=== PATIENT | female | born 1970 | race Caucasian/White ===

== ENCOUNTER 2017-02-24 16:50 | Emergency (ER) | payer OTHER ==
--- NOTE | 2017-02-24 17:47 | ED ---
General Adult HPI - General Source: patient, RN notes reviewed Mode of arrival: ambulatory Limitations: no limitations <Tyrone Awan - Last Filed: 02/24/17 19:10> <Satish Snyder - Last Filed: 02/24/17 20:54> - General Chief complaint: Neuro Symptoms/Deficit Stated complaint: Slurred Speech-3 wks Time Seen by Provider: 02/24/17 17:05 - History of Present Illness Initial comments: this is a 46-year-old female presents emergency Department complaining that she' s had slurred speech for 3 weeks. Patient states it doesn't appear to be getting any worse. She has had for 3 weeks her has noticed and her coworkers noticed. Patient states she's had no headache she denies any numbness or weakness. Patient denies any facial droop. Patient denies any blurred vision. Patient states she's had no chest pain difficulty breathing or shortness of breath. Patient denies any palpitations. Patient denies abdominal pain patient denies nausea vomiting or diarrhea. Patient denies any recent fever chills or cough. (Tyrone Awan) - Related Data Home Medications Medication Instructions Recorded Confirmed EPINEPHrine [Epipen 2-Hussain] 0.3 mg IM ONCE PRN 02/24/17 02/24/17 Bolton-3 Fatty Acids/Fish Oil [Fish 1 cap PO BID 02/24/17 02/24/17 Oil 1,000 mg Capsule] Omeprazole Magnesium [Prilosec Otc] 20 mg PO HS 02/24/17 02/24/17 Polyethylene Glycol 3350 [Miralax] 17 gm PO DAILY PRN 02/24/17 02/24/17 Allergies Allergy/AdvReac Type Severity Reaction Status Date / Time peanut Allergy Per Verified 02/24/17 17:57 Allergy Testing Penicillins Allergy Rash/Hives Verified 02/24/17 17:57 Review of Systems ROS Other: All systems not noted in ROS Statement are negative. <Tyrone Awan - Last Filed: 02/24/17 19:10> ROS Other: All systems not noted in ROS Statement are negative. <Satish Snyder - Last Filed: 02/24/17 20:54> ROS Statement: Those systems with pertinent positive or pertinent negative responses have been documented in the HPI. Past Medical History History of Any Multi-Drug Resistant Organisms: None Reported Past Surgical History: Hysterectomy, Tubal Ligation Additional Past Surgical History / Comment(s): dental surgery Smoking Status: Never smoker Past Alcohol Use History: Rare Past Drug Use History: None Reported <Tyrone Awan - Last Filed: 02/24/17 19:10> General Exam Limitations: no limitations <Tyrone Awan - Last Filed: 02/24/17 19:10> <Satish Snyder - Last Filed: 02/24/17 20:54> - General Exam Comments Initial Comments: GENERAL: Patient is well-developed and well-nourished. Patient is nontoxic and well- hydrated and is in no acute distress. ENT: Neck is soft and supple. No significant lymphadenopathy is noted. Oropharynx is clear. Moist mucous membranes. Neck has full range of motion without eliciting any pain. EYES: The sclera were anicteric and conjunctiva were pink and moist. Extraocular movements were intact and pupils were equal round and reactive to light. Eyelids were unremarkable. PULMONARY: Unlabored respirations. Good breath sounds bilaterally. No audible rales rhonchi or wheezing was noted. CARDIOVASCULAR: There is a regular rate and rhythm without any murmurs gallops or rubs. ABDOMEN: Soft and nontender with normal bowel sounds. No palpable organomegaly was noted. There is no palpable pulsatile mass. SKIN: Skin is clear with no lesions or rashes and otherwise unremarkable. NEUROLOGIC: Patient is alert and oriented x3. Cranial nerves II through XII are grossly intact. Motor and sensory are also intact. speech is very slightly slurred. Symmetrical smile. MUSCULOSKELETAL: Normal extremities with adequate strength and full range of motion. No lower extremity swelling or edema. No calf tenderness. LYMPHATICS: No significant lymphadenopathy is noted PSYCHIATRIC: Normal psychiatric evaluation. Normal interpersonal interactions appears functionally intact in deals appropriately with others. No signs of depression. No signs of anxiety. (Tyrone Awan) Medical Decision Making <Tyrone Awan - Last Filed: 02/24/17 19:10> - Lab Data Result diagrams: 02/24/17 19:10 02/24/17 19:10 <Satish Snyder - Last Filed: 02/24/17 20:54> - Medical Decision Making EKG shows normal sinus rhythm at 75 bpm AK interval is 140 QRS is 98 QT interval is 4:30 QTC is 480. Patient's EKG shows no ST segment elevation or depression or T-wave abdomen is noted. Dr. Reynolds will be taking over the care of this patient at 7 PM (Tyrone Awan) I received this patient as a sign out, to review the studies with the patient. I have reviewed the results with the patient and her . She has not had any new symptoms and is feeling the same as when she arrived. We discussed further evaluation, including having neurology consultation and possibly MRI. Of they were able to recall some additional history, namely that just prior to onset of symptoms the patient had dental cleaning that required she received some anesthesia, and they will follow-up with the neurologist see if this is a possible sequela of that. Discussed appropriate follow-up care and return parameters. (Satish Snyder) - Lab Data Lab Results 02/24/17 02/24/17 02/24/17 Range/Units 19:10 19:10 19:10 WBC 9.7 (3.8-10.6) k/uL RBC 4.96 (3.80-5.40) m/uL Hgb 14.0 (11.4-16.0) gm/dL Hct 42.1 (34.0-46.0) % MCV 85.0 (80.0-100.0) fL MCH 28.3 (25.0-35.0) pg MCHC 33.3 (31.0-37.0) g/dL RDW 13.6 (11.5-15.5) % Plt Count 274 (150-450) k/uL Neutrophils % 67 % Lymphocytes % 25 % Monocytes % 4 % Eosinophils % 2 % Basophils % 1 % Neutrophils # 6.5 (1.3-7.7) k/uL Lymphocytes # 2.4 (1.0-4.8) k/uL Monocytes # 0.4 (0-1.0) k/uL Eosinophils # 0.2 (0-0.7) k/uL Basophils # 0.1 (0-0.2) k/uL PT (9.0-12.0) sec INR (<1.1) APTT (22.0-30.0) sec Sodium 141 (137-145) mmol/L Potassium 4.0 (3.5-5.1) mmol/L Chloride 107 (98-107) mmol/L Carbon Dioxide 22 (22-30) mmol/L Anion Gap 12 mmol/L BUN 13 (7-17) mg/dL Creatinine 0.60 (0.52-1.04) mg/dL Est GFR (MDRD) Af Amer >60 (>60 ml/min/1.73 sqM) Est GFR (MDRD) Non-Af >60 (>60 ml/min/1.73 sqM) Glucose 93 (74-99) mg/dL Calcium 9.4 (8.4-10.2) mg/dL Total Bilirubin 0.4 (0.2-1.3) mg/dL AST 28 (14-36) U/L ALT 38 (9-52) U/L Alkaline Phosphatase 108 (38-126) U/L Total Creatine Kinase 87 (30-135) U/L CK-MB (CK-2) 0.7 (0.0-2.4) ng/mL CK-MB (CK-2) Rel Index 0.8 Troponin I <0.012 (0.000-0.034) ng/mL Total Protein 7.1 (6.3-8.2) g/dL Albumin 4.2 (3.5-5.0) g/dL 02/24/17 Range/Units 19:10 WBC (3.8-10.6) k/uL RBC (3.80-5.40) m/uL Hgb (11.4-16.0) gm/dL Hct (34.0-46.0) % MCV (80.0-100.0) fL MCH (25.0-35.0) pg MCHC (31.0-37.0) g/dL RDW (11.5-15.5) % Plt Count (150-450) k/uL Neutrophils % % Lymphocytes % % Monocytes % % Eosinophils % % Basophils % % Neutrophils # (1.3-7.7) k/uL Lymphocytes # (1.0-4.8) k/uL Monocytes # (0-1.0) k/uL Eosinophils # (0-0.7) k/uL Basophils # (0-0.2) k/uL PT 10.1 (9.0-12.0) sec INR 1.0 (<1.1) APTT 24.7 (22.0-30.0) sec Sodium (137-145) mmol/L Potassium (3.5-5.1) mmol/L Chloride (98-107) mmol/L Carbon Dioxide (22-30) mmol/L Anion Gap mmol/L BUN (7-17) mg/dL Creatinine (0.52-1.04) mg/dL Est GFR (MDRD) Af Amer (>60 ml/min/1.73 sqM) Est GFR (MDRD) Non-Af (>60 ml/min/1.73 sqM) Glucose (74-99) mg/dL Calcium (8.4-10.2) mg/dL Total Bilirubin (0.2-1.3) mg/dL AST (14-36) U/L ALT (9-52) U/L Alkaline Phosphatase (38-126) U/L Total Creatine Kinase (30-135) U/L CK-MB (CK-2) (0.0-2.4) ng/mL CK-MB (CK-2) Rel Index Troponin I (0.000-0.034) ng/mL Total Protein (6.3-8.2) g/dL Albumin (3.5-5.0) g/dL Disposition <Tyrone Awan - Last Filed: 02/24/17 19:10> <Satish Snyder - Last Filed: 02/24/17 20:54> Clinical Impression: Dysarthria Disposition: HOME SELF-CARE Condition: Fair Referrals: Tyrone Caruso MD [Primary Care Provider] - 1-2 days Rin Calixto MD [STAFF PHYSICIAN] - 1-2 days
--- NOTE | 2017-02-24 18:23 | CT ---
EXAMINATION TYPE: CT brain wo con for TPA DATE OF EXAM: 02/24/2017 COMPARISON: NONE INDICATION: Slurred speech x 6-8 weeks. DLP: 1121.00 mGycm, Automated exposure control for dose reduction was used. CONTRAST: None CT of the brain is performed utilizing 3 mm thick sections through the posterior fossa and 3 mm thick sections through the remaining calvarium. Study is performed within 24 hours of arrival to the hosp ital. No abnormal hyperdensity is present to suggest an acute intracranial hemorrhage. No mass lesion is evident. No acute infarcts are evident. Ventricles and sulci are appropriate for the patient age. Paranasal sinuses and mastoid air cells within the [id number] are clear. IMPRESSIONS: 1. Normal CT Brain 2. Report was called to the emergency room by Dr. Ortiz by telephone at 1820 hours 02/24/2017
--- NOTE | 2017-02-24 18:57 | XR ---
EXAMINATION TYPE: XR chest 2V DATE OF EXAM: 02/24/2017 COMPARISON: NONE INDICATION: Altered mental status slurred speech TECHNIQUE: Frontal and lateral views of the chest are obtained. FINDINGS: The heart size is normal. The pulmonary vasculature is normal. The lungs are clear. IMPRESSION: 1. No acute pulmonary process.
[2017-02-24 19:26] LABS: Basophils # (A) 0.1 k/uL (0-0.2); Basophils % (A) 1 %; CH 28.2; CHCM 33.3; Eosinophils # (A) 0.2 k/uL (0-0.7); Eosinophils % (A) 2 %; HCT 42.1 % (34.0-46.0); HDW 2.55; Luc # (Auto) 0.11; Luc % (Auto) 1; Lymphocytes # (A) 2.4 k/uL (1.0-4.8); Lymphocytes % (A) 25 %; MCH 28.3 pg (25.0-35.0); MCHC 33.3 g/dL (31.0-37.0); Mean Platelet Volume 6.5; Monocytes # (A) 0.4 k/uL (0-1.0); Monocytes % (A) 4 %; Neutrophils # (A) 6.5 k/uL (1.3-7.7); Neutrophils % (A) 67 %; RBC 4.96 m/uL (3.80-5.40); RDW 13.6 % (11.5-15.5); WBC 9.7 k/uL (3.8-10.6); WBC (Perox) 9.37
[2017-02-24 19:36] LABS: ALT 38 U/L (9-52); AST 28 U/L (14-36); Alkaline Phosphatase 108 U/L (38-126); Anion Gap 12 mmol/L; Blood Urea Nitrogen 13 mg/dL (7-17); Calcium 9.4 mg/dL (8.4-10.2); Carbon Dioxide 22 mmol/L (22-30); Chloride 107 mmol/L (98-107); Glucose 93 mg/dL (74-99); Non-African American GFR(MDRD) >60 (>60 ml/min/1.73 sqM); Sodium 141 mmol/L (137-145); Total Bilirubin 0.4 mg/dL (0.2-1.3); Total Protein 7.1 g/dL (6.3-8.2)
[2017-02-24 19:43] VITALS: RESP 18
[2017-02-24 19:47] LABS: Creatine Kinase 87 U/L (30-135)
[2017-02-24 19:50] LABS: Partial Thromboplastin Time 24.7 sec (22.0-30.0); Prothrombin Time 10.1 sec (9.0-12.0)
[2017-02-24 20:00] LABS: Creatine Kinase MB 0.7 ng/mL (0.0-2.4); Troponin I <0.012 ng/mL (0.000-0.034)
[2017-02-24 21:11] VITALS: BP 143/63; PULSE 77; TEMP 97.8
== END 2017-02-24 21:09 | disposition home or self-care (01) ==
LOC: EC 16:50
DX: R47.1 Dysarthria and anarthria (principal); R47.81 Slurred speech; Z79.899 Other long term (current) drug therapy; Z91.010 Allergy to peanuts; Z88.0 Allergy status to penicillin
CPT/HCPCS: 36415; 70450; 71020; 80053; 82550; 82553; 84484; 85025; 85610; 85730; 93005; 99284

== ENCOUNTER → 2017-06-27 | Outpatient (CLI) | payer OTHER ==
[2017-06-27 19:14] LABS: Appearance,CSF Clear
[2017-07-01 14:15] LABS: Lyme Specimen Source Not Provided
== END | disposition home or self-care (01) ==
LOC: LABWHC1 10:05
PROVIDERS: ATTEND Psychiatry & Neurology Pain Medicine
DX: R90.82 White matter disease, unspecified (principal)
CPT/HCPCS: 36415; 82040; 82042; 82784; 83873; 83916; 84157; 87476; 88108; 89050

== ENCOUNTER → 2017-07-07 | Outpatient (CLI) | payer OTHER ==
--- NOTE | 2017-07-07 14:46 | FL ---
MODIFIED SWALLOW / DEGLUTITION STUDY DATE OF EXAM: 07/07/2017 CLINICAL HISTORY: 46-year-old female dysphagia, progressive slurred speech and trouble swallowing. Ne urologic workup in progress. TECHNIQUE: Deglutition study is performed utilizing thin liquid barium, honey and nectar thick liqui d barium, barium thick applesauce, and barium coated cracker. Total fluoroscopy time: 1.14 minutes. Total images: None, exam performed in real-time. COMPARISON: None. FINDINGS: The oral and pharyngeal phases show satisfactory initiation and propagation with all modalities teste d. Normal mastication is seen with solid modalities tested. There is no evidence of penetration or aspiration with any modality tested. No significant pharyngeal residue was appreciated. IMPRESSION: Normal deglutition study. Please refer to speech therapist notes for further details if necessary.
== END | disposition home or self-care (01) ==
LOC: RADFLMAIN 11:26
PROVIDERS: ATTEND Psychiatry & Neurology Pain Medicine
DX: R13.12 Dysphagia, oropharyngeal phase (principal)
CPT/HCPCS: 74230

== ENCOUNTER → 2018-04-12 | Outpatient (CLI) | payer OTHER ==
--- NOTE | 2018-04-13 11:33 | MM ---
Reason for exam: screening (asymptomatic). Last mammogram was performed 1 year and 9 months ago. History: Family history of breast cancer in maternal aunt. Took hormonal contraceptives for 5 years beginning at age 15. Physical Findings: A clinical breast exam by your physician is recommended on an annual basis and results should be correlated with mammographic findings. MG 3D Screening Mammo W/Cad Bilateral CC and MLO view(s) were taken. Prior study comparison: July 08, 2016, bilateral MG 3d screening mammo w/cad. October 14, 2013, bilateral digital screening mammo w/CAD. There are scattered fibroglandular densities. There is no discrete abnormality. ASSESSMENT: Negative, BI-RAD 1 RECOMMENDATION: Routine screening mammogram of both breasts in 1 year.
== END | disposition home or self-care (01) ==
LOC: RADMAMWWP 12:55
PROVIDERS: ATTEND Obstetrics & Gynecology
DX: Z53.9 Procedure and treatment not carried out, unspecified reason (principal)
CPT/HCPCS: 77063; 77067

== ENCOUNTER 2018-10-01 18:38 | Emergency (ER) | payer OTHER ==
[2018-10-01 18:48] VITALS: RESP 18
--- NOTE | 2018-10-01 19:19 | XR ---
EXAMINATION TYPE: XR chest 2V DATE OF EXAM: 10/01/2018 COMPARISON: Chest x-ray February 24, 2017. HISTORY: Chest pain and difficulty breathing with deep inspiration. TECHNIQUE: Frontal and lateral views of the chest are obtained. FINDINGS: There is no focal air space opacity, pleural effusion, or pneumothorax seen. The cardiac silhouette size is within normal limits. The osseous structures are intact. Small ossific bodies ne ar the right shoulder joint are redemonstrated. IMPRESSION: No acute cardiopulmonary process. No significant change from prior.
--- NOTE | 2018-10-01 19:20 | XR ---
EXAMINATION TYPE: XR soft tissue neck DATE OF EXAM: 10/01/2018 COMPARISON: NONE HISTORY: Difficulty breathing with deep inspiration. Possible foreign body in throat. TECHNIQUE: 2 view soft tissue neck are acquired. FINDINGS: No suspicious prevertebral soft tissue swelling is seen. Epiglottis and vallecula appears w ithin normal limits. No suspicious narrowing of subglottic airway is noted on frontal view. No suspic ious radiodense foreign body clearly identified. IMPRESSION: As above, unremarkable view soft tissue neck.
[2018-10-01] MEDS ORDERED: METOCLOPRAMIDE 5 MG/ML 2 ML VIAL IVP STA (20:55)
[2018-10-01] MEDS ORDERED: GLUCAGON 1 MG/ML VIAL IVP STA (20:55)
--- NOTE | 2018-10-01 22:14 | ED ---
General Adult HPI - General Chief complaint: Skin/Abscess/Foreign Body Stated complaint: Something stuck in throat Time Seen by Provider: 10/01/18 20:33 Source: patient Mode of arrival: ambulatory Limitations: language barrier - History of Present Illness Initial comments: 47-year-old female patient with past medical history significant for progressive bulbar palsy presents to the emergency department today with foreign body sensation to the throat. 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 states that after she ate lunch which consisted of macaroni and cheese she started to have the sensation that something was stuck in her throat. She is able to swallow fluids and has not had any vomiting. She denies any shortness of breath or increased cough with this. Patient has had esophageal obstruction from food in the past. Patient denies any recent rash, fever, chills, chest pain, abdominal pain, diarrhea, constipation, back pain, numbness, tingling, dizziness, weakness, hematuria, dysuria, urinary urgency, urinary frequency, headache, visual changes, or any other complaints. - Related Data Home Medications Medication Instructions Recorded Confirmed Aspirin EC [Ecotrin Low Dose] 81 mg PO DAILY 10/01/18 10/01/18 Fexofenadine HCl [Anai Allergy] 180 mg PO DAILY 10/01/18 10/01/18 Furosemide [Lasix] 20 mg PO DAILY 10/01/18 10/01/18 Loratadine [Claritin] 10 mg PO DAILY 10/01/18 10/01/18 Losartan [Cozaar] 50 mg PO DAILY 10/01/18 10/01/18 Montelukast [Singulair] 10 mg PO HS 10/01/18 10/01/18 diphenhydrAMINE HCL [Benadryl] 25 mg PO HS PRN 10/01/18 10/01/18 Allergies Allergy/AdvReac Type Severity Reaction Status Date / Time peanut Allergy Per Verified 10/01/18 20:45 Allergy Testing Penicillins Allergy Rash/Hives Verified 10/01/18 20:45 Review of Systems ROS Statement: Those systems with pertinent positive or pertinent negative responses have been documented in the HPI. ROS Other: All systems not noted in ROS Statement are negative. Past Medical History Additional Past Medical History / Comment(s): Progressive Bulbar Pulsy History of Any Multi-Drug Resistant Organisms: None Reported Past Surgical History: Hysterectomy, Tubal Ligation Additional Past Surgical History / Comment(s): dental surgery Past Psychological History: No Psychological Hx Reported Smoking Status: Never smoker Past Alcohol Use History: Rare Past Drug Use History: None Reported General Exam Limitations: language barrier General appearance: alert, in no apparent distress, other (This is a well- developed, well-nourished adult female patient in no acute distress. Vital signs upon presentation are temperature 98.5F, pulse 80, respirations 18, blood pressure 167/97, pulse ox 98% on room air.) Eye exam: Present: normal appearance, PERRL, EOMI. Absent: scleral icterus, conjunctival injection, periorbital swelling ENT exam: Present: normal exam, normal oropharynx, mucous membranes moist Neck exam: Present: normal inspection. Absent: tenderness, meningismus, lymphadenopathy Respiratory exam: Present: normal lung sounds bilaterally. Absent: respiratory distress, wheezes, rales, rhonchi, stridor Cardiovascular Exam: Present: regular rate, normal rhythm, normal heart sounds. Absent: systolic murmur, diastolic murmur, rubs, gallop, clicks GI/Abdominal exam: Present: soft, normal bowel sounds. Absent: distended, tenderness, guarding, rebound, rigid Neurological exam: Present: alert, oriented X3, CN II-XII intact Psychiatric exam: Present: normal affect, normal mood Skin exam: Present: warm, dry, intact, normal color. Absent: rash Course Vital Signs 10/01/18 10/01/18 10/01/18 18:44 21:55 22:23 Temperature 98.5 F 98.4 F 98.2 F Pulse Rate 80 79 94 Respiratory 18 18 18 Rate Blood Pressure 167/97 154/84 120/87 O2 Sat by Pulse 98 98 99 Oximetry Medical Decision Making - Medical Decision Making 47-year-old female patient with past medical history significant for progressive bulbar palsy presents to the emergency department today for evaluation of foreign body sensation to the throat. Physical examination is unremarkable. Patient is able to swallow and keep down fluids without difficulty. She is in no respiratory distress. An IV was inserted patient was given IV Reglan and glucagon. She was given soda to drink after this. Shortly after the procedure she was still experiencing the foreign body sensation. After a period of time she was reevaluated she states that the feeling did resolve. She is feeling back to normal. She'll be discharged home to follow- up with her specialist for recheck as soon as possible. Return parameters were discussed in detail. She verbalizes understanding and agrees with this plan. - Radiology Data Radiology results: report reviewed, image reviewed Two-view x-ray of the chest is obtained. Report was reviewed in its entirety. Impression by Dr. Gupta shows no acute cardio pulmonary process. No significant change from prior. 2 view soft tissue neck x-rays are obtained. No suspicious prevertebral soft tissue swelling is seen. Epiglottis and vallecula appears within normal limits. No suspicious narrowing of the subglottic airway is noted on frontal view. No suspicious radiodense foreign body clearly identified. Impression by Dr. Gupta shows unremarkable view soft tissue neck. Disposition Clinical Impression: Esophageal foreign body Disposition: HOME SELF-CARE Condition: Good Instructions: Esophageal Foreign Body (ED) Additional Instructions: Stick to soft easy to swallow foods. Follow-up with her specialist as soon as possible. Return immediately for any new, worsening, or concerning symptoms. Is patient prescribed a controlled substance at d/c from ED?: No Referrals: Tyrone Caruso MD [Primary Care Provider] - 1-2 days Time of Disposition: 22:14
[2018-10-01 22:23] VITALS: BP 120/87; PULSE 94; TEMP 98.2
== END 2018-10-01 22:23 | disposition home or self-care (01) ==
LOC: EC 18:38
DX: T18.128A Food in esophagus causing other injury, initial encounter (principal); G12.22 Progressive bulbar palsy; Z88.0 Allergy status to penicillin; Z91.010 Allergy to peanuts; Z79.82 Long term (current) use of aspirin; Z79.899 Other long term (current) drug therapy
CPT/HCPCS: 70360; 71046; 99283; 96374; 96375; J1610; J2765

== ENCOUNTER 2018-11-01 15:12 | Emergency (ER) | payer OTHER, MEDICARE ==
[2018-11-01 15:41] VITALS: TEMP 98.3
[2018-11-01] MEDS ORDERED: SODIUM CHLORIDE 0.9% 1,000 ML IV STA (16:12)
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
[2018-11-01 16:57] LABS: Basophils % (A) 0 %; Eosinophils # (A) 0.1 k/uL (0-0.7); Eosinophils % (A) 1 %; HCT 43.7 % (34.0-46.0); HGB 14.2 gm/dL (11.4-16.0); Lymphocytes # (A) 1.4 k/uL (1.0-4.8); Lymphocytes % (A) 16 %; MCH 27.5 pg (25.0-35.0); MCHC 32.5 g/dL (31.0-37.0); MCV 84.6 fL (80.0-100.0); Mean Platelet Volume 7.7; Monocytes # (A) 0.5 k/uL (0-1.0); Monocytes % (A) 5 %; Neutrophils # (A) 6.8 k/uL (1.3-7.7); Neutrophils % (A) 77 %; Platelet Count 241 k/uL (150-450); RBC 5.17 m/uL (3.80-5.40); RDW 13.9 % (11.5-15.5); WBC 8.9 k/uL (3.8-10.6)
[2018-11-01 17:07] LABS: ALT 31 U/L (9-52); AST 42 U/L (14-36); Albumin 4.5 g/dL (3.5-5.0); Alkaline Phosphatase 127 U/L (38-126); Anion Gap 12 mmol/L; Blood Urea Nitrogen 14 mg/dL (7-17); Calcium 9.9 mg/dL (8.4-10.2); Carbon Dioxide 23 mmol/L (22-30); Chloride 105 mmol/L (98-107); Glucose 90 mg/dL (74-99); Sodium 140 mmol/L (137-145); Total Bilirubin 1.1 mg/dL (0.2-1.3)
[2018-11-01 17:26] LABS: Potassium 4.9 mmol/L (3.5-5.1)
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
[2018-11-01 18:29] LABS: Appearance,Urine Clear (Clear); Bacteria,Urine Rare /hpf; Bilirubin,Urine Negative (Negative); Blood,Urine Trace (Negative); Color,Urine Yellow; Glucose,Urine (UA) Negative (Negative); Ketones,Urine 3+ (Negative); Leukocyte Esterase,Urine Negative (Negative); Mucus,Urine Few /hpf; Nitrite,Urine Negative (Negative); Protein,Urine Trace (Negative); RBC,Urine 4 /hpf (0-5); Squamous Epithelial Cell,Urine 8 /hpf (0-4); Urobilinogen,Urine <2.0 mg/dL (<2.0); WBC,Urine 1 /hpf (0-5)
[2018-11-01 18:31] LABS: Specific Gravity,Urine >1.050 (1.001-1.035)
[2018-11-01] MEDS ORDERED: KETOROLAC 30 MG/ML 1 ML VIAL IVP STA (18:35)
[2018-11-01 19:14] VITALS: BP 110/56; PULSE 78; RESP 20
== END 2018-11-01 18:55 | disposition home or self-care (01) ==
LOC: EC 15:12
DX: S20.211A Contusion of right front wall of thorax, initial encounter (principal); G12.22 Progressive bulbar palsy; Z88.0 Allergy status to penicillin; Z91.010 Allergy to peanuts; Z79.82 Long term (current) use of aspirin; Z79.899 Other long term (current) drug therapy; V49.59XA Passenger injured in collision with other motor vehicles in traffic accident, initial encounter; Y92.410 Unspecified street and highway as the place of occurrence of the external cause
CPT/HCPCS: 36415; 80053; 85025; 81001; 71260; 74177; 99284; 96374; 96361; J1885; Q9967

== ENCOUNTER 2019-01-06 14:06 | Emergency (ER) | payer MEDICARE ==
[2019-01-06 14:29] VITALS: RESP 18
[2019-01-06] MEDS ORDERED: SODIUM CHLORIDE 0.9% 1,000 ML IV STA ×2 (15:10)
--- NOTE | 2019-01-06 15:23 | ED ---
Female Urogenital HPI - General Chief complaint: Urogenital Stated complaint: Hematuria Time Seen by Provider: 01/06/19 14:30 Source: patient, family, RN notes reviewed, old records reviewed Mode of arrival: ambulatory Limitations: physical limitation - History of Present Illness Initial comments: Patient is a 48-year-old female with history of pseudobulbar palsy presents emergency Department today with complaints of hematuria and dysuria for the past 2 days. Patient states is concerned that she may be dehydrated. She has a difficult time swallowing and maintaining her hydration status due to the history of pseudobulbar palsy. Patient is having a difficult time speaking communicating. Consistent with the disease. Patient's reports tenderness history of urinary tract infections. She denies any fevers or back pain. No nausea or vomiting. - Related Data Home Medications Medication Instructions Recorded Confirmed Aspirin EC [Ecotrin Low Dose] 81 mg PO DAILY 10/01/18 11/01/18 Fexofenadine HCl [Anai Allergy] 180 mg PO DAILY 10/01/18 11/01/18 Furosemide [Lasix] 20 mg PO DAILY 10/01/18 11/01/18 Losartan [Cozaar] 50 mg PO DAILY 10/01/18 11/01/18 Montelukast [Singulair] 10 mg PO HS 10/01/18 11/01/18 diphenhydrAMINE HCL [Benadryl] 25 mg PO HS PRN 10/01/18 11/01/18 Albuterol Nebulized [Ventolin 2.5 mg INHALATION RT-Q6H PRN 11/01/18 11/01/18 Nebulized] Ipratropium Nebulized [Atrovent 0.5 mg INHALATION RT-Q6H PRN 11/01/18 11/01/18 Nebulized 0.2 MG/ML] Previous Rx's Medication Instructions Recorded Nitrofurantoin Monohyd/M-Cryst 100 mg PO Q12HR #14 cap 01/06/19 [Macrobid] Phenazopyridine [Pyridium] 100 mg PO TID #9 tablet 01/06/19 Allergies Allergy/AdvReac Type Severity Reaction Status Date / Time peanut Allergy Per Verified 01/06/19 14:29 Allergy Testing Penicillins Allergy Rash/Hives Verified 01/06/19 14:29 Review of Systems ROS Statement: Those systems with pertinent positive or pertinent negative responses have been documented in the HPI. ROS Other: All systems not noted in ROS Statement are negative. 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 Alert and oriented 3. No significant distress. Limitations: physical limitation General appearance: alert, in no apparent distress Head exam: Present: atraumatic, normocephalic, normal inspection Eye exam: Present: normal appearance, PERRL, EOMI. Absent: scleral icterus, conjunctival injection, periorbital swelling ENT exam: Present: normal exam, mucous membranes moist Neck exam: Present: normal inspection. Absent: tenderness, meningismus, lymphadenopathy Respiratory exam: Present: normal lung sounds bilaterally Cardiovascular Exam: Present: regular rate, normal rhythm, normal heart sounds. Absent: systolic murmur, diastolic murmur, rubs, gallop, clicks GI/Abdominal exam: Present: soft, normal bowel sounds. Absent: distended, te nderness, guarding, rebound, rigid Extremities exam: Present: normal inspection, full ROM, normal capillary refill. Absent: tenderness, pedal edema, joint swelling, calf tenderness Back exam: Present: normal inspection Neurological exam: Present: alert, oriented X3, CN II-XII intact Psychiatric exam: Present: normal affect, normal mood Course Vital Signs 01/06/19 14:25 Temperature 97.8 F Pulse Rate 92 Respiratory 18 Rate Blood Pressure 126/93 O2 Sat by Pulse 98 Oximetry Medical Decision Making - Lab Data Result diagrams: 01/06/19 15:27 01/06/19 15:27 Lab Results 01/06/19 01/06/19 01/06/19 Range/Units 15:00 15:27 15:27 WBC 8.0 (3.8-10.6) k/uL RBC 5.11 (3.80-5.40) m/uL Hgb 14.1 (11.4-16.0) gm/dL Hct 43.1 (34.0-46.0) % MCV 84.4 (80.0-100.0) fL MCH 27.6 (25.0-35.0) pg MCHC 32.7 (31.0-37.0) g/dL RDW 14.0 (11.5-15.5) % Plt Count 232 (150-450) k/uL Neutrophils % 73 % Lymphocytes % 18 % Monocytes % 6 % Eosinophils % 1 % Basophils % 0 % Neutrophils # 5.8 (1.3-7.7) k/uL Lymphocytes # 1.5 (1.0-4.8) k/uL Monocytes # 0.5 (0-1.0) k/uL Eosinophils # 0.1 (0-0.7) k/uL Basophils # 0.0 (0-0.2) k/uL Sodium 142 (137-145) mmol/L Potassium 3.8 (3.5-5.1) mmol/L Chloride 105 (98-107) mmol/L Carbon Dioxide 30 (22-30) mmol/L Anion Gap 7 mmol/L BUN 10 (7-17) mg/dL Creatinine 0.45 L (0.52-1.04) mg/dL Est GFR (CKD-EPI)AfAm >90 (>60 ml/min/1.73 sqM) Est GFR (CKD-EPI)NonAf >90 (>60 ml/min/1.73 sqM) Glucose 93 (74-99) mg/dL Calcium 9.7 (8.4-10.2) mg/dL Total Bilirubin 0.8 (0.2-1.3) mg/dL AST 36 (14-36) U/L ALT 45 (9-52) U/L Alkaline Phosphatase 129 H (38-126) U/L Total Protein 7.6 (6.3-8.2) g/dL Albumin 4.5 (3.5-5.0) g/dL Amylase 47 (30-110) U/L Lipase 102 (23-300) U/L Urine Color Yellow Urine Appearance Cloudy H (Clear) Urine pH 5.5 (5.0-8.0) Ur Specific [place] 1.013 (1.001-1.035) Urine Protein Trace H (Negative) Urine Glucose (UA) Negative (Negative) Urine Ketones Negative (Negative) Urine Blood Large H (Negative) Urine Nitrite Negative (Negative) Urine Bilirubin Negative (Negative) Urine Urobilinogen <2.0 (<2.0) mg/dL Ur Leukocyte Esterase Negative (Negative) Urine RBC >182 H (0-5) /hpf Urine WBC 3 (0-5) /hpf Ur Squamous Epith Cells 3 (0-4) /hpf Hyaline Casts 14 H (0-2) /lpf Urine Mucus Moderate H (None) /hpf - Radiology Data Radiology results: report reviewed Mild sigmoid diverticulosis without diverticulitis. Old granulomatous disease in the spleen. Overall no adverse changes compared old exam. Disposition Clinical Impression: Hemorrhagic cystitis Disposition: HOME SELF-CARE Condition: Good Instructions (If sedation given, give patient instructions): Urinary Tract Infection in Women (ED) Additional Instructions: Follow-up with primary care doctor. Return to emergency department if any alarming signs or symptoms occur. Complete antibiotic prescription. Prescriptions: Nitrofurantoin Monohyd/M-Cryst [Macrobid] 100 mg PO Q12HR #14 cap Phenazopyridine [Pyridium] 100 mg PO TID #9 tablet Is patient prescribed a controlled substance at d/c from ED?: No Referrals: Tyrone Caruso MD [Primary Care Provider] - 1-2 days Time of Disposition: 17:55
[2019-01-06 15:32] LABS: Appearance,Urine Cloudy (Clear); Bilirubin,Urine Negative (Negative); Blood,Urine Large (Negative); Color,Urine Yellow; Glucose,Urine (UA) Negative (Negative); Hyaline Casts,Urine 14 /lpf (0-2); Ketones,Urine Negative (Negative); Leukocyte Esterase,Urine Negative (Negative); Mucus,Urine Moderate /hpf; Nitrite,Urine Negative (Negative); PH, Urine 5.5 (5.0-8.0); Protein,Urine Trace (Negative); RBC,Urine >182 /hpf (0-5); Specific Gravity,Urine 1.013 (1.001-1.035); Squamous Epithelial Cell,Urine 3 /hpf (0-4); Urobilinogen,Urine <2.0 mg/dL (<2.0); WBC,Urine 3 /hpf (0-5)
[2019-01-06 15:38] LABS: Basophils % (A) 0 %; Eosinophils # (A) 0.1 k/uL (0-0.7); Eosinophils % (A) 1 %; HCT 43.1 % (34.0-46.0); HGB 14.1 gm/dL (11.4-16.0); Lymphocytes # (A) 1.5 k/uL (1.0-4.8); Lymphocytes % (A) 18 %; MCH 27.6 pg (25.0-35.0); MCHC 32.7 g/dL (31.0-37.0); MCV 84.4 fL (80.0-100.0); Mean Platelet Volume 7.2; Monocytes # (A) 0.5 k/uL (0-1.0); Monocytes % (A) 6 %; Neutrophils # (A) 5.8 k/uL (1.3-7.7); Neutrophils % (A) 73 %; Platelet Count 232 k/uL (150-450); RBC 5.11 m/uL (3.80-5.40)
[2019-01-06 15:50] LABS: ALT 45 U/L (9-52); AST 36 U/L (14-36); Albumin 4.5 g/dL (3.5-5.0); Alkaline Phosphatase 129 U/L (38-126); Amylase 47 U/L (30-110); Anion Gap 7 mmol/L; Blood Urea Nitrogen 10 mg/dL (7-17); Calcium 9.7 mg/dL (8.4-10.2); Carbon Dioxide 30 mmol/L (22-30); Chloride 105 mmol/L (98-107); Glucose 93 mg/dL (74-99); Lipase 102 U/L (23-300); Potassium 3.8 mmol/L (3.5-5.1); Sodium 142 mmol/L (137-145); Total Bilirubin 0.8 mg/dL (0.2-1.3); Total Protein 7.6 g/dL (6.3-8.2)
--- NOTE | 2019-01-06 16:51 | CT ---
EXAMINATION TYPE: CT abdomen pelvis w con DATE OF EXAM: 01/06/2019 COMPARISON: 11/01/2018 HISTORY: hematuria CT DLP: 1200.5 mGycm Automated exposure control for dose reduction was used. TECHNIQUE: Helical acquisition of images was performed from the lung bases through the pelvis. CONTRAST: Performed without Oral Contrast and with IV Contrast, patient injected with 100 mL of Isovue 300. FINDINGS: There is some minimal subsegmental atelectasis at the lung bases. Heart size is normal. There is no p ericardial effusion. There are numerous calcified splenic granulomata. Liver shows no focal defect. B ile ducts are not dilated. Gallbladder appears normal. There is no pancreatic mass. Stomach appears n ormal. There is no adrenal mass. Kidneys show satisfactory contrast opacification. There is no hydronephrosi s. There is no retroperitoneal adenopathy. Ureters are not dilated. Bladder distends smoothly. There is no evidence of a pelvic mass. There is no free fluid in the pelvi s. There is no inguinal hernia. There are multiple diverticula of the sigmoid colon. There is no sign of diverticulitis. There is no sign of free air. There is no ascites. There is no mesenteric edema. Lumbar spine is intact. I see no bony destructive process. Appendix is not seen. There is no sign of appendicitis. IMPRESSION: THERE IS MILD SIGMOID DIVERTICULOSIS WITHOUT DIVERTICULITIS. OLD GRANULOMATOUS DISEASE IN THE SPLEEN. THERE IS OVERALL NO ADVERSE CHANGE COMPARED TO OLD EXAM.
[2019-01-06] MEDS ORDERED: NITROFURANTOIN MONOHYD/M-CRYST 100 MG CAP PO STA (17:56)
[2019-01-06 18:15] VITALS: BP 134/87; PULSE 87; TEMP 98.1
== END 2019-01-06 18:15 | disposition home or self-care (01) ==
LOC: EC 14:06
DX: N30.91 Cystitis, unspecified with hematuria (principal); K57.30 Diverticulosis of large intestine without perforation or abscess without bleeding; G12.22 Progressive bulbar palsy; Z88.0 Allergy status to penicillin; Z91.010 Allergy to peanuts; Z79.82 Long term (current) use of aspirin; Z79.899 Other long term (current) drug therapy; Z87.440 Personal history of urinary (tract) infections; Z90.710 Acquired absence of both cervix and uterus
CPT/HCPCS: 36415; 80053; 82150; 83690; 85025; 81001; 87086; 74177; 99284; 96360; 96361 ×2; Q9967; 87077; 87186

== ENCOUNTER 2019-03-29 13:27 | Inpatient (IN) | payer MEDICARE ==
--- NOTE | 2019-03-29 13:52 | ED ---
General Adult HPI - General Stated complaint: Unresponsive Time Seen by Provider: 03/29/19 13:27 Source: RN notes reviewed - History of Present Illness Initial comments: This is a 48-year-old female with a past medical history significant for end- stage ALS. Patient also has a history of some dementia as ALS his progress. states he went to get her out of the car and she was so weak she couldn't even stand and ambulate on the ground. Patient was having agonal breathing and was ashen when the first responders got there they started assisting the patient in breathing. According to the the patient is a no code no intubation. He also indicated he did not want a CAT scan of her head because they would not intervene if they found anything. Patient is unable to give any history at this time. Patient is unable to talk at her baseline but now she does not even follow simple commands. According to the she was out camping with them and was doing fine prior to drive home. When they got home his when she was unable to the car and became completely flaccid according to the - Related Data Home Medications Medication Instructions Recorded Confirmed Furosemide [Lasix] 20 mg PO DAILY 10/01/18 03/29/19 Losartan [Cozaar] 50 mg PO DAILY 10/01/18 03/29/19 Montelukast [Singulair] 10 mg PO HS 10/01/18 03/29/19 Albuterol Nebulized [Ventolin 2.5 mg INHALATION RT-Q6H PRN 11/01/18 03/29/19 Nebulized] Ipratropium Nebulized [Atrovent 0.5 mg INHALATION RT-Q6H PRN 11/01/18 03/29/19 Nebulized 0.2 MG/ML] Radicava 30mg 30 mg IV DAILY 03/29/19 Allergies Allergy/AdvReac Type Severity Reaction Status Date / Time peanut Allergy Per Verified 03/29/19 13:43 Allergy Testing Penicillins Allergy Rash/Hives Verified 03/29/19 13:43 Review of Systems ROS Statement: Those systems with pertinent positive or pertinent negative responses have been documented in the HPI. ROS Other: All systems not noted in ROS Statement are negative. 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 No significant lymphadenopathy is noted. Oropharynx is clear. Moist mucous membranes. Neck has full range of motion without eliciting any pain. EYES: The sclera were anicteric and conjunctiva were pink and moist. Extraocular movements were intact and pupils were equal round and reactive to light. Eyelids were unremarkable. PULMONARY: Diffusely diminished breath sounds CARDIOVASCULAR: There is a regular rate and rhythm without any murmurs gallops or rubs. ABDOMEN: Soft and nontender with normal bowel sounds. SKIN: Skin is clear with no lesions or rashes and otherwise unremarkable. NEUROLOGIC: Patient is not awake and does not respond to verbal stimuli but does withdraw from painful stimuli MUSCULOSKELETAL: Normal extremities with adequate strength and full range of motion. LYMPHATICS: No significant lymphadenopathy is noted PSYCHIATRIC: Unable to assess Course Vital Signs 03/29/19 03/29/19 03/29/19 13:35 14:00 14:30 Temperature 96.8 F L Pulse Rate 98 100 97 Respiratory 29 H 29 H 28 H Rate Blood Pressure 154/103 134/93 136/95 O2 Sat by Pulse 99 97 94 L Oximetry Medical Decision Making - Medical Decision Making EKG shows sinus rhythm at 90 bpm FL interval 210 QRS is 86 QT interval 374 QTC is 457. Patient's EKG shows ST segment depression in leads V2 through the 6 as well as inversion in those leads of the T-wave. Patient also has T-wave inversion in inferior leads II, III, and F aVF. Patient's troponin came back mildly elevated so I repeated EKG to see if the ischemic changes continued ordered with a corrected themselves with proper oxygenation. I placed the patient on BiPAP EKG showed a sinus rhythm at 92 bpm FL interval is 108 QRSs 82 QT interval 44 QTC is 49. Patient's EKG shows ST segment depression and T-wave inversions in leads V2 through V6 as well as T-wave inversions in inferior leads II, III, and F aVF. EKG looks relatively unchanged from the previous EKG. I spoke with Dr. Samman he wanted the patient medically treated. I ordered an echo. I spoke with Dr. bonilla he agreed to see the patient and I admitted the patient I wrote admitting orders I consulted cardiology - Lab Data Result diagrams: 03/29/19 13:40 03/29/19 13:40 Lab Results 03/29/19 03/29/19 03/29/19 Range/Units 13:40 13:40 13:40 WBC 11.7 H (3.8-10.6) k/uL RBC 6.11 H (3.80-5.40) m/uL Hgb 17.1 H (11.4-16.0) gm/dL Hct 54.6 H (34.0-46.0) % MCV 89.4 (80.0-100.0) fL MCH 28.0 (25.0-35.0) pg MCHC 31.3 (31.0-37.0) g/dL RDW 15.4 (11.5-15.5) % Plt Count 131 L (150-450) k/uL Neutrophils % 88 % Lymphocytes % 5 % Monocytes % 5 % Eosinophils % 1 % Basophils % 0 % Neutrophils # 10.3 H (1.3-7.7) k/uL Lymphocytes # 0.6 L (1.0-4.8) k/uL Monocytes # 0.6 (0-1.0) k/uL Eosinophils # 0.1 (0-0.7) k/uL Basophils # 0.0 (0-0.2) k/uL Hypochromasia Slight PT (9.0-12.0) sec INR (<1.2) APTT (22.0-30.0) sec Sample Site ABG pH (7.35-7.45) ABG pCO2 (35-45) mmHg ABG pO2 (83-108) mmHg ABG HCO3 (21-25) mmol/L ABG Total CO2 (19-24) mmol/L ABG O2 Saturation (94-97) % ABG Base Excess mmol/L Kevon Test FiO2 % Sodium 165 H* (137-145) mmol/L Potassium 2.8 L (3.5-5.1) mmol/L Chloride 118 H (98-107) mmol/L Carbon Dioxide 38 H (22-30) mmol/L Anion Gap 9 mmol/L BUN 37 H (7-17) mg/dL Creatinine 0.81 (0.52-1.04) mg/dL Est GFR (CKD-EPI)AfAm >90 (>60 ml/min/1.73 sqM) Est GFR (CKD-EPI)NonAf 86 (>60 ml/min/1.73 sqM) Glucose 191 H (74-99) mg/dL Calcium 9.7 (8.4-10.2) mg/dL Magnesium 2.7 H (1.6-2.3) mg/dL Total Bilirubin 1.7 H (0.2-1.3) mg/dL AST 64 H (14-36) U/L ALT 102 H (9-52) U/L Alkaline Phosphatase 149 H (38-126) U/L Troponin I (0.000-0.034) ng/mL NT-Pro-B Natriuret Pep 1330 pg/mL Total Protein 7.4 (6.3-8.2) g/dL Albumin 4.2 (3.5-5.0) g/dL 03/29/19 03/29/19 03/29/19 Range/Units 13:40 13:40 14:12 WBC (3.8-10.6) k/uL RBC (3.80-5.40) m/uL Hgb (11.4-16.0) gm/dL Hct (34.0-46.0) % MCV (80.0-100.0) fL MCH (25.0-35.0) pg MCHC (31.0-37.0) g/dL RDW (11.5-15.5) % Plt Count (150-450) k/uL Neutrophils % % Lymphocytes % % Monocytes % % Eosinophils % % Basophils % % Neutrophils # (1.3-7.7) k/uL Lymphocytes # (1.0-4.8) k/uL Monocytes # (0-1.0) k/uL Eosinophils # (0-0.7) k/uL Basophils # (0-0.2) k/uL Hypochromasia PT 11.0 (9.0-12.0) sec INR 1.0 (<1.2) APTT 27.0 (22.0-30.0) sec Sample Site rrad ABG pH 7.36 (7.35-7.45) ABG pCO2 64 H (35-45) mmHg ABG pO2 218 H (83-108) mmHg ABG HCO3 36 H (21-25) mmol/L ABG Total CO2 38 H (19-24) mmol/L ABG O2 Saturation 99.7 H (94-97) % ABG Base Excess 10.5 mmol/L Kevon Test Yes FiO2 100 % Sodium (137-145) mmol/L Potassium (3.5-5.1) mmol/L Chloride (98-107) mmol/L Carbon Dioxide (22-30) mmol/L Anion Gap mmol/L BUN (7-17) mg/dL Creatinine (0.52-1.04) mg/dL Est GFR (CKD-EPI)AfAm (>60 ml/min/1.73 sqM) Est GFR (CKD-EPI)NonAf (>60 ml/min/1.73 sqM) Glucose (74-99) mg/dL Calcium (8.4-10.2) mg/dL Magnesium (1.6-2.3) mg/dL Total Bilirubin (0.2-1.3) mg/dL AST (14-36) U/L ALT (9-52) U/L Alkaline Phosphatase (38-126) U/L Troponin I 0.143 H* (0.000-0.034) ng/mL NT-Pro-B Natriuret Pep pg/mL Total Protein (6.3-8.2) g/dL Albumin (3.5-5.0) g/dL Critical Care Time Critical Care Time: Yes Total Critical Care Time: 35 Disposition Clinical Impression: Dehydration, Hypokalemia, Hyponatremia, Hypercapnia, Non-STEMI (non-ST elevated myocardial infarction) Disposition: ADMITTED IP TO THIS HOSP Referrals: Tyrone Caruso MD [Primary Care Provider] - 1-2 days Time of Disposition: 16:20
[2019-03-29 14:01] LABS: Basophils % (A) 0 %; Eosinophils # (A) 0.1 k/uL (0-0.7); Eosinophils % (A) 1 %; HCT 54.6 % (34.0-46.0); HGB 17.1 gm/dL (11.4-16.0); Hypochromasia Slight; Lymphocytes # (A) 0.6 k/uL (1.0-4.8); Lymphocytes % (A) 5 %; MCHC 31.3 g/dL (31.0-37.0); MCV 89.4 fL (80.0-100.0); Mean Platelet Volume 9.3; Monocytes # (A) 0.6 k/uL (0-1.0); Monocytes % (A) 5 %; Neutrophils # (A) 10.3 k/uL (1.3-7.7); Neutrophils % (A) 88 %; Platelet Count 131 k/uL (150-450); RBC 6.11 m/uL (3.80-5.40); RDW 15.4 % (11.5-15.5); WBC 11.7 k/uL (3.8-10.6)
[2019-03-29 14:09] LABS: ALT 102 U/L (9-52); AST 64 U/L (14-36); African American GFR (CKD) >90 (>60 ml/min/1.73 sqM); Albumin 4.2 g/dL (3.5-5.0); Alkaline Phosphatase 149 U/L (38-126); Anion Gap 9 mmol/L; Blood Urea Nitrogen 37 mg/dL (7-17); Calcium 9.7 mg/dL (8.4-10.2); Carbon Dioxide 38 mmol/L (22-30); Chloride 118 mmol/L (98-107); Glucose 191 mg/dL (74-99); Magnesium 2.7 mg/dL (1.6-2.3); Potassium 2.8 mmol/L (3.5-5.1); Total Bilirubin 1.7 mg/dL (0.2-1.3); Total Protein 7.4 g/dL (6.3-8.2)
[2019-03-29 14:12] LABS: Sodium 165 mmol/L (137-145)
[2019-03-29 14:17] LABS: ABG Base Excess 10.5 mmol/L; ABG HCO3 36 mmol/L (21-25); ABG Oxygen Saturation 99.7 % (94-97); ABG PCO2 64 mmHg (35-45); ABG PH 7.36 (7.35-7.45); ABG PO2 218 mmHg (83-108); ABG TCO2 38 mmol/L (19-24); Allen Test Performed? Yes
[2019-03-29] MEDS ORDERED: SODIUM CHLORIDE 0.9% 500 ML 500 ML IV ONE (14:20)
[2019-03-29] MEDS ORDERED: POTASSIUM CHLORIDE 20 MEQ in WATER FOR INJECTION 1 100ML.BAG IVPB STA (15:03)
--- NOTE | 2019-03-29 15:29 | CT ---
EXAMINATION TYPE: CT brain wo con DATE OF EXAM: 03/29/2019 COMPARISON: February 24, 2017 HISTORY: UNRESPONSIVE, HX OF ALS CT DLP: 1094.[address] of the brain was performed. The ventricles, basal cisterns and sulci overlying the cerebral convexities demonstrate mild enlargem ent. There is no evidence for intracranial hemorrhage or sulcal effacement. There is decreased attenuation about the periventricular white matter and deep white matter of both c erebral hemispheres, compatible with chronic small vessel ischemia. Differential diagnosis does inclu de demyelination. No mass effects are seen.No midline shift. Osseous calvarium is intact. If symptoms persist consider MRI. IMPRESSION: 1. Age related atrophic and chronic small vessel ischemic change without acute intracranial process s een at this time.
[2019-03-29] MEDS ORDERED: HEPARIN SODIUM,PORCINE 5,000 UNIT/ML 1 ML VIAL IV ONE (15:40)
[2019-03-29] MEDS ORDERED: HEPARIN SOD,PORK IN 0.45% NACL 25,000 UNIT in 0.45% NACL 1 250ML.BAG IV SCH (15:45)
--- NOTE | 2019-03-29 16:00 | XR ---
EXAMINATION TYPE: XR chest 1V portable DATE OF EXAM: 03/29/2019 HISTORY: Shortness of breath. COMPARISON: 10/01/2018 TECHNIQUE: Single view of the chest is submitted. FINDINGS: Demonstrated are scattered senescent parenchymal change. There is no evidence for focal infiltrate. The heart is stable. Hilar and mediastinal structures are within normal limits. Degenerative changes are seen of the dorsal spine. IMPRESSION: 1. Chronic changes without evidence for acute pulmonary disease.
[2019-03-29] MEDS ORDERED: ALBUTEROL NEBULIZED 2.5 MG/3 ML INHALATION PRN (16:19)
[2019-03-29] MEDS ORDERED: Potassium Replacement Protocol 1 EACH MISC MISCELLANE PRN (16:19)
[2019-03-29] MEDS ORDERED: SODIUM CHLORIDE 0.9% 1,000 ML IV ONE (16:21)
[2019-03-29] MEDS ORDERED: DEXTROSE 5%-0.45% NACL 1,000 ML IV ONE (16:23)
[2019-03-29] MEDS ORDERED: LEVOFLOXACIN 500MG-D5W PMX 500 MG in DEXTROSE/WATER 1 100ML.BAG IVPB SCH (16:30)
--- NOTE | 2019-03-29 20:03 | P.HPIM ---
History of Present Illness This is a pleasant 48 years old female with past medical history of hysterectomy, pseudobulbar palsy with difficulty swallowing food 10 drinks, hematuria, and UTI secondary to multidrug sensitive E. coli. Presents with altered mental status, she was on a trip with family and for 3-4 day, she was complaining from symptoms however on arriving home she could not get out of the car and she was confused . currently pt can provide informatino pt has history of bulbar/pseudobulbar palsy, and she has history of difficulty eating and drinking , she uses a suction to help her whenever she eats, she sees a neurologist at [facility] and recently at [facility], Dr. Katz offered PEG tube to her before but she declined , now he think it is too late for her to get PEG tube. as per at bed side she communicate through her phone by text example she text one word like "ice cream" or "Help" On admission blood pressure 136/95, she is on BiPAP, afebrile labs reviewed showing leukocytosis of 11.7, hematocrit of 54.6, hemoglobin of 17.1, platelets of 131 and elevated sodium of 165, low potassium of 2.8, creatinine normal at 0.8, baseline 0.4, elevated liver enzymes of 102 and 149, bilirubin is slightly elevated at 1.7, troponin is high at 0.14, urinalysis is suspicious for infection. Computed tomography scan of the brain is negative for acute process. Chest x-ray showing chronic changes without acute pulmonary disease. Emergency room physician discussed the case with doctor Dr. khan from cardiology who recommended heparin drip told me her wishes is to be ( no intubation) and after discussing with family he told bed side RN he does not want chest compression either , and he want her to be DNR. s/w staff. 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 History of Any Multi-Drug Resistant Organisms: None Reported Past Surgical History: Hysterectomy, Tubal Ligation Additional Past Surgical History / Comment(s): dental surgery Past Psychological History: No Psychological Hx Reported Smoking Status: Never smoker Past Alcohol Use History: None Reported Past Drug Use History: None Reported Medications and Allergies Home Medications Medication Instructions Recorded Confirmed Type Furosemide [Lasix] 20 mg PO DAILY 10/01/18 03/29/19 History Losartan [Cozaar] 50 mg PO DAILY 10/01/18 03/29/19 History Montelukast [Singulair] 10 mg PO HS 10/01/18 03/29/19 History Albuterol Nebulized [Ventolin 2.5 mg INHALATION RT-Q6H PRN 11/01/18 03/29/19 History Nebulized] Ipratropium Nebulized [Atrovent 0.5 mg INHALATION RT-Q6H PRN 11/01/18 03/29/19 History Nebulized 0.2 MG/ML] Radicava 30mg 30 mg IV DAILY 03/29/19 History Allergies Allergy/AdvReac Type Severity Reaction Status Date / Time peanut Allergy Per Verified 03/29/19 13:43 Allergy Testing Penicillins Allergy Rash/Hives Verified 03/29/19 13:43 Physical Exam Vitals: Vital Signs Temp Pulse Resp BP Pulse Ox 03/29/19 14:30 97 28 H 136/95 94 L 03/29/19 14:00 100 29 H 134/93 97 03/29/19 13:35 96.8 F L 98 29 H 154/103 99 Intake and Output 03/29/19 03/29/19 03/29/19 06:59 14:59 22:59 Other: Weight 70.307 kg -GENERAL: The patient is confused on BiPAP machine, she follows simple commands eg raise your hand -HEENT: Pupils are round and equally reacting to light. EOMI. No scleral icterus. No conjunctival pallor. Normocephalic, atraumatic. No pharyngeal erythema. No thyromegaly. looks dehydrated CARDIOVASCULAR: S1 and S2 present. No murmurs, rubs, or gallops. PULMONARY: Chest is clear to auscultation, no wheezing or crackles. ABDOMEN: Soft, nontender, nondistended, normoactive bowel sounds. No palpable organomegaly. MUSCULOSKELETAL: No joint swelling or deformity. EXTREMITIES: No cyanosis, clubbing, or pedal edema. NEUROLOGICAL: Gross neurological examination did not reveal any focal deficits. SKIN: No rashes. Results CBC & Chem 7: 03/29/19 13:40 03/29/19 13:40 Labs: Abnormal Lab Results - Last 24 Hours (Table) 03/29/19 03/29/19 03/29/19 Range/Units 13:40 13:40 13:40 WBC 11.7 H (3.8-10.6) k/uL RBC 6.11 H (3.80-5.40) m/uL Hgb 17.1 H (11.4-16.0) gm/dL Hct 54.6 H (34.0-46.0) % Plt Count 131 L (150-450) k/uL Neutrophils # 10.3 H (1.3-7.7) k/uL Lymphocytes # 0.6 L (1.0-4.8) k/uL ABG pCO2 (35-45) mmHg ABG pO2 (83-108) mmHg ABG HCO3 (21-25) mmol/L ABG Total CO2 (19-24) mmol/L ABG O2 Saturation (94-97) % Sodium 165 H* (137-145) mmol/L Potassium 2.8 L (3.5-5.1) mmol/L Chloride 118 H (98-107) mmol/L Carbon Dioxide 38 H (22-30) mmol/L BUN 37 H (7-17) mg/dL Glucose 191 H (74-99) mg/dL Magnesium 2.7 H (1.6-2.3) mg/dL Total Bilirubin 1.7 H (0.2-1.3) mg/dL AST 64 H (14-36) U/L ALT 102 H (9-52) U/L Alkaline Phosphatase 149 H (38-126) U/L Troponin I 0.143 H* (0.000-0.034) ng/mL 03/29/19 Range/Units 14:12 WBC (3.8-10.6) k/uL RBC (3.80-5.40) m/uL Hgb (11.4-16.0) gm/dL Hct (34.0-46.0) % Plt Count (150-450) k/uL Neutrophils # (1.3-7.7) k/uL Lymphocytes # (1.0-4.8) k/uL ABG pCO2 64 H (35-45) mmHg ABG pO2 218 H (83-108) mmHg ABG HCO3 36 H (21-25) mmol/L ABG Total CO2 38 H (19-24) mmol/L ABG O2 Saturation 99.7 H (94-97) % Sodium (137-145) mmol/L Potassium (3.5-5.1) mmol/L Chloride (98-107) mmol/L Carbon Dioxide (22-30) mmol/L BUN (7-17) mg/dL Glucose (74-99) mg/dL Magnesium (1.6-2.3) mg/dL Total Bilirubin (0.2-1.3) mg/dL AST (14-36) U/L ALT (9-52) U/L Alkaline Phosphatase (38-126) U/L Troponin I (0.000-0.034) ng/mL Assessment and Plan Assessment: Metabolic encephalopathy Hypernatremia Elevated troponin, suspicious for non-STEMI, rule out coronary artery disease bulbar/pseudobulbar palsy with possible ALS as per family Hypokalemia Severe dehydration Elevated liver enzymes Mild thrombocytopenia swallowing difficulty at baseline DNR/DNI as per patient and family wishes Plan: This is a 48 years old female who presents with altered mental status, UTI, hypernatremia and beta troponin. Serial troponins, Continue with heparin drip, call cardiology consult. Monitor electrolytes, ceftriaxone, send urine culture and blood culture. Continue with IV fluids. Follow-up liver test.Labs and medication were reviewed.. Continue same treatment. Continue with symptomatic treatment. Resume home medication. Monitor lytes and vitals. DVT and GI prophylaxis. Further recommendations of the clinical course of the patient DVT prophylaxis: heparin GI Prophylaxis: Pepcid Prognosis is guarded
[2019-03-29 20:44] VITALS: BMI 25.0
[2019-03-29 20:52] LABS: Anisocytosis Slight; Basophils % (A) 0 %; Eosinophils # (A) 0.1 k/uL (0-0.7); Eosinophils % (A) 0 %; HCT 52.4 % (34.0-46.0); HGB 16.5 gm/dL (11.4-16.0); Hypochromasia Moderate; Lymphocytes # (A) 0.9 k/uL (1.0-4.8); Lymphocytes % (A) 7 %; MCH 28.3 pg (25.0-35.0); MCHC 31.5 g/dL (31.0-37.0); Mean Platelet Volume 12.4; Monocytes # (A) 0.7 k/uL (0-1.0); Monocytes % (A) 6 %; Neutrophils # (A) 11.1 k/uL (1.3-7.7); Neutrophils % (A) 86 %; RBC 5.83 m/uL (3.80-5.40); RDW 16.5 % (11.5-15.5); WBC 12.8 k/uL (3.8-10.6)
[2019-03-29 21:00] LABS: Appearance,Urine Turbid (Clear); Bacteria,Urine Occasional /hpf; Bilirubin,Urine 2+ (Negative); Blood,Urine Small (Negative); Cellular Casts,Urine 7 /lpf (0); Color,Urine Dark Brown; Glucose,Urine (UA) 1+ (Negative); Hyaline Casts,Urine 2 /lpf (0-2); Ketones,Urine Trace (Negative); Leukocyte Esterase,Urine Negative (Negative); Mucus,Urine Occasional /hpf; Nitrite,Urine Negative (Negative); Protein,Urine 2+ (Negative); RBC,Urine 1 /hpf (0-5); Squamous Epithelial Cell,Urine 3 /hpf (0-4); WBC,Urine 10 /hpf (0-5)
[2019-03-29 21:26] LABS: Large Platelets Present; Platelet Count 75 k/uL (150-450)
[2019-03-29 22:15] LABS: ALT 82 U/L (9-52); AST 53 U/L (14-36); African American GFR (CKD) >90 (>60 ml/min/1.73 sqM); Albumin 3.6 g/dL (3.5-5.0); Alkaline Phosphatase 134 U/L (38-126); Anion Gap 9 mmol/L; Blood Urea Nitrogen 35 mg/dL (7-17); Calcium 9.3 mg/dL (8.4-10.2); Carbon Dioxide 33 mmol/L (22-30); Chloride 123 mmol/L (98-107); Glucose 106 mg/dL (74-99); Potassium 3.6 mmol/L (3.5-5.1); Total Bilirubin 1.6 mg/dL (0.2-1.3); Total Protein 6.4 g/dL (6.3-8.2)
[2019-03-29 22:17] LABS: Sodium 165 mmol/L (137-145)
[2019-03-29] MEDS ORDERED: DEXTROSE 5%-0.45% NACL 1,000 ML IV SCH (22:30)
[2019-03-29] MEDS ORDERED: IPRATROPIUM-ALBUTEROL 3 ML NEB INHALATION PRN (23:03)
[2019-03-29] MEDS: methylPREDNISolone SOD SUCCI 40 MG/ML 1 ML VIAL IV SCH (23:10)
[2019-03-30 01:16] LABS: INR 1.1 (<1.2); Prothrombin Time 11.5 sec (9.0-12.0)
[2019-03-30 01:25] LABS: Partial Thromboplastin Time 129.2 sec (22.0-30.0)
[2019-03-30 02:48] LABS: Basophils % (A) 0 %; Eosinophils # (A) 0.1 k/uL (0-0.7); Eosinophils % (A) 1 %; HCT 50.1 % (34.0-46.0); HGB 15.4 gm/dL (11.4-16.0); Hypochromasia Moderate; Lymphocytes # (A) 0.5 k/uL (1.0-4.8); Lymphocytes % (A) 4 %; MCH 27.9 pg (25.0-35.0); MCHC 30.7 g/dL (31.0-37.0); MCV 90.9 fL (80.0-100.0); Mean Platelet Volume 9.5; Monocytes # (A) 0.5 k/uL (0-1.0); Monocytes % (A) 5 %; Neutrophils # (A) 9.8 k/uL (1.3-7.7); Neutrophils % (A) 89 %; Platelet Count 100 k/uL (150-450); RBC 5.51 m/uL (3.80-5.40); RDW 15.5 % (11.5-15.5)
[2019-03-30 03:30] LABS: Potassium 3.3 mmol/L (3.5-5.1); Sodium 163 mmol/L (137-145)
[2019-03-30 03:42] LABS: ALT 76 U/L (9-52); AST 51 U/L (14-36); African American GFR (CKD) >90 (>60 ml/min/1.73 sqM); Albumin 3.5 g/dL (3.5-5.0); Alkaline Phosphatase 129 U/L (38-126); Anion Gap 8 mmol/L; Blood Urea Nitrogen 34 mg/dL (7-17); Calcium 9.3 mg/dL (8.4-10.2); Carbon Dioxide 29 mmol/L (22-30); Chloride 126 mmol/L (98-107); Glucose 132 mg/dL (74-99); Total Bilirubin 1.5 mg/dL (0.2-1.3); Total Protein 6.1 g/dL (6.3-8.2)
[2019-03-30] MEDS ORDERED: DEXTROSE 5% IN WATER 1,000 ML IV ONE ×2 (07:58→12:47)
[2019-03-30] MEDS ORDERED: POTASSIUM CHLORIDE 20 MEQ in WATER FOR INJECTION 1 100ML.BAG IVPB STA (08:13)
[2019-03-30] MEDS: methylPREDNISolone SOD SUCCI 40 MG/ML 1 ML VIAL IV SCH ×2 (08:26→20:49)
[2019-03-30] MEDS: BUDESONIDE 0.5 MG/2 ML NEBU INHALATION SCH ×2 (08:37→20:47)
[2019-03-30] MEDS: IPRATROPIUM-ALBUTEROL 3 ML NEB INHALATION SCH ×4 (08:37→20:47)
--- NOTE | 2019-03-30 11:33 | ECHOF ---
Referral Reason:EKG changes, elevated troponin MEASUREMENTS -------- HEIGHT: 167.6 cm WEIGHT: 70.3 kg BP: IVSd: 1.3 cm (0.6 - 1.1) LVIDd: 3.0 cm (3.9 - 5.3) LVPWd: 1.4 cm (0.6 - 1.1) IVSs: 1.4 cm LVIDs: 2.1 cm LVPWs: 1.4 cm LAESV Index (A-L): 13.84 ml/m Ao Diam: 2.5 cm (2.0 - 3.7) AV Cusp: 1.2 cm (1.5 - 2.6) LA Diam: 3.4 cm (2.7 - 3.8) MV E Yash: 0.41 m/s MV DecT: 210 ms MV A Yash: 0.57 m/s MV E/A Ratio: 0.72 RAP: 5.00 mmHg RVSP: 16.89 mmHg FINDINGS -------- Sinus rhythm. This was a technically difficult study with suboptimal parasternal views. Pt. on a vent. The left ventricular size is normal. There is mild concentric left ventricular hypertrophy. Overa ll left ventricular systolic function is low-normal with, an EF between 50 - 55 %. The right ventricle is normal in size. Normal LA size by volume 22+/-6 ml/m2. The right atrial size is normal. Interatrial and interventricular septum intact. There is no evidence of aortic regurgitation. There is no evidence of aortic stenosis. Mild mitral annular calcification present. There is trace mitral regurgitation. Mild tricuspid regurgitation present. There is no evidence of pulmonary hypertension. The right v entricular systolic pressure, as measured by Doppler, is 16.89mmHg. There is no pulmonic regurgitation present. The aortic root size is normal. IVC Not well visulized. There is no pericardial effusion. CONCLUSIONS -------- 1. Sinus rhythm. 2. This was a technically difficult study with suboptimal parasternal views. 3. Pt. on a vent. 4. The left ventricular size is normal. 5. There is mild concentric left ventricular hypertrophy. 6. Overall left ventricular systolic function is low-normal with, an EF between 50 - 55 %. 7. The right ventricle is normal in size. 8. Normal LA size by volume 22+/-6 ml/m2. 9. The right atrial size is normal. 10. Interatrial and interventricular septum intact. 11. There is no evidence of aortic regurgitation. 12. There is no evidence of aortic stenosis. 13. Mild mitral annular calcification present. 14. There is trace mitral regurgitation. 15. Mild tricuspid regurgitation present. 16. There is no evidence of pulmonary hypertension. 17. The right ventricular systolic pressure, as measured by Doppler, is 16.89mmHg. 18. There is no pulmonic regurgitation present. 19. The aortic root size is normal. 20. IVC Not well visulized. 21. There is no pericardial effusion. [employer] SERVICE ASSOCIATE: Vania Baltazar RDCS
--- NOTE | 2019-03-30 13:08 | P.PN ---
Subjective This is a pleasant 48 years old female with past medical history of hysterectomy, pseudobulbar palsy with difficulty swallowing food 10 drinks, hem aturia, and UTI secondary to multidrug sensitive E. coli. Presents with altered mental status, she was on a trip with family and for 3-4 day, she was complaining from symptoms however on arriving home she could not get out of the car and she was confused . currently pt can provide informatino pt has history of bulbar/pseudobulbar palsy, and she has history of difficulty eating and drinking , she uses a suction to help her whenever she eats, she sees a neurologist at [facility] and recently at [facility], Dr. Katz offered PEG tube to her before but she declined , now he think it is too late for her to get PEG tube. as per at bed side she co mmunicate through her phone by text example she text one word like "ice cream" or "Help" On admission blood pressure 136/95, she is on BiPAP, afebrile labs reviewed showing leukocytosis of 11.7, hematocrit of 54.6, hemoglobin of 17.1, platelets of 131 and elevated sodium of 165, low potassium of 2.8, creatinine normal at 0.8, baseline 0.4, elevated liver enzymes of 102 and 149, bilirubin is slightly elevated at 1.7, troponin is high at 0.14, urinalysis is suspicious for infection. Computed tomography scan of the brain is negative for acute process. Chest x-ray showing chronic changes without acute pulmonary disease. Emergency room physician discussed the case with doctor Dr. khan from [facility] who recommended heparin drip told me her wishes is to be ( no intubation) and after discussing with family he told bed side RN he does not want chest compression either , and he want her to be DNR. s/w staff. 03/30/2019 Patient is more awake and interactive today, she can move her hands more freely. She still have difficulty communicating which is close to her baseline. Hus[place] nd and family at bedside. And they think that she is improving as well. Patient denies abdominal pain or suprapubic discomfort. No urinary complaints. Vital to showing a blood pressure 111/72, patient is afebrile. She is saturating 96% on FiO2 of 70%. Labs showing mild leukocytosis of 11 K, im proving. Her sodium level is still 163 this morning, and low potassium at 3.3 been replaced. Patient is on D5 W at 50 mm per hour, increase to 100 mL per hour. She is on low dose steroids and bronchodilator. Heparin drip was stopped Review of systems: Non-applicable Medication: Albuterol 0.5 mg, ipratropium 3 mg, Pulmicort 0.5 mg, dextrose water 5% at 100 L/h, Solu-Medrol 40 mg, potassium chloride per protocol Objective - Vital Signs Vital signs: Vital Signs Temp 97.6 F 03/30/19 08:00 Pulse 76 03/30/19 11:55 Resp 20 03/30/19 11:51 BP 118/86 03/30/19 11:51 Pulse Ox 100 03/30/19 11:51 Intake & Output 03/29/19 03/30/19 03/30/19 18:59 06:59 18:59 Intake Total 63.137 45.351 Output Total 150 Balance -150 63.137 45.351 Weight 70.307 kg 73 kg Intake: Intake, IV Titration 63.137 45.351 Amount Heparin Sod,Pork in 0.45% 63.137 45.351 NaCl 25,000 unit In 0.45 % NaCl 1 250ml.bag @ 12 UNITS/KG/HR 8.437 mls/hr IV .Q24H [facility] Rx#: [id number] Output: Urine 150 Straight 150 Other: Voiding Method Incontinent # Voids 1 - Exam -GENERAL: The patient is confused on BiPAP machine, she follows simple commands eg raise your hand, better than on admission. Patient is more interactive -HEENT: Pupils are round and equally reacting to light. EOMI. No scleral icterus. No conjunctival pallor. Normocephalic, atraumatic. No pharyngeal erythema. No thyromegaly. CARDIOVASCULAR: S1 and S2 present. No murmurs, rubs, or gallops. PULMONARY: Chest is clear to auscultation, no wheezing or crackles. ABDOMEN: Soft, nontender, nondistended, normoactive bowel sounds. No palpable organomegaly. MUSCULOSKELETAL: No joint swelling or deformity. EXTREMITIES: No cyanosis, clubbing, or pedal edema. NEUROLOGICAL: Gross neurological examination did not reveal any focal deficits. SKIN: No rashes. - Labs CBC & Chem 7: 03/30/19 02:37 03/30/19 02:37 Labs: Abnormal Lab Results - Last 24 Hours (Table) 03/29/19 03/29/19 03/29/19 Range/Units 13:40 13:40 13:40 WBC 11.7 H (3.8-10.6) k/uL RBC 6.11 H (3.80-5.40) m/uL Hgb 17.1 H (11.4-16.0) gm/dL Hct 54.6 H (34.0-46.0) % MCHC (31.0-37.0) g/dL RDW (11.5-15.5) % Plt Count 131 L (150-450) k/uL Neutrophils # 10.3 H (1.3-7.7) k/uL Lymphocytes # 0.6 L (1.0-4.8) k/uL APTT (22.0-30.0) sec ABG pCO2 (35-45) mmHg ABG pO2 (83-108) mmHg ABG HCO3 (21-25) mmol/L ABG Total CO2 (19-24) mmol/L ABG O2 Saturation (94-97) % Sodium 165 H* (137-145) mmol/L Potassium 2.8 L (3.5-5.1) mmol/L Chloride 118 H (98-107) mmol/L Carbon Dioxide 38 H (22-30) mmol/L BUN 37 H (7-17) mg/dL Glucose 191 H (74-99) mg/dL Magnesium 2.7 H (1.6-2.3) mg/dL Total Bilirubin 1.7 H (0.2-1.3) mg/dL AST 64 H (14-36) U/L ALT 102 H (9-52) U/L Alkaline Phosphatase 149 H (38-126) U/L Troponin I 0.143 H* (0.000-0.034) ng/mL Total Protein (6.3-8.2) g/dL Urine Appearance (Clear) Urine Protein (Negative) Urine Glucose (UA) (Negative) Urine Ketones (Negative) Urine Blood (Negative) Urine Bilirubin (Negative) Urine WBC (0-5) /hpf Urine Bacteria (None) /hpf Urine Mucus (None) /hpf 03/29/19 03/29/19 03/29/19 Range/Units 14:12 18:00 19:43 WBC (3.8-10.6) k/uL RBC (3.80-5.40) m/uL Hgb (11.4-16.0) gm/dL Hct (34.0-46.0) % MCHC (31.0-37.0) g/dL RDW (11.5-15.5) % Plt Count (150-450) k/uL Neutrophils # (1.3-7.7) k/uL Lymphocytes # (1.0-4.8) k/uL APTT (22.0-30.0) sec ABG pCO2 64 H (35-45) mmHg ABG pO2 218 H (83-108) mmHg ABG HCO3 36 H (21-25) mmol/L ABG Total CO2 38 H (19-24) mmol/L ABG O2 Saturation 99.7 H (94-97) % Sodium (137-145) mmol/L Potassium (3.5-5.1) mmol/L Chloride (98-107) mmol/L Carbon Dioxide (22-30) mmol/L BUN (7-17) mg/dL Glucose (74-99) mg/dL Magnesium (1.6-2.3) mg/dL Total Bilirubin (0.2-1.3) mg/dL AST (14-36) U/L ALT (9-52) U/L Alkaline Phosphatase (38-126) U/L Troponin I 0.120 H* (0.000-0.034) ng/mL Total Protein (6.3-8.2) g/dL Urine Appearance Turbid H (Clear) Urine Protein 2+ H (Negative) Urine Glucose (UA) 1+ H (Negative) Urine Ketones Trace H (Negative) Urine Blood Small H (Negative) Urine Bilirubin 2+ H (Negative) Urine WBC 10 H (0-5) /hpf Urine Bacteria Occasional H (None) /hpf Urine Mucus Occasional H (None) /hpf 03/29/19 03/29/19 03/30/19 Range/Units 20:15 21:04 00:43 WBC 12.8 H (3.8-10.6) k/uL RBC 5.83 H (3.80-5.40) m/uL Hgb 16.5 H (11.4-16.0) gm/dL Hct 52.4 H (34.0-46.0) % MCHC (31.0-37.0) g/dL RDW 16.5 H (11.5-15.5) % Plt Count 75 L (150-450) k/uL Neutrophils # 11.1 H (1.3-7.7) k/uL Lymphocytes # 0.9 L (1.0-4.8) k/uL APTT 129.2 H* (22.0-30.0) sec ABG pCO2 (35-45) mmHg ABG pO2 (83-108) mmHg ABG HCO3 (21-25) mmol/L ABG Total CO2 (19-24) mmol/L ABG O2 Saturation (94-97) % Sodium 165 H* (137-145) mmol/L Potassium (3.5-5.1) mmol/L Chloride 123 H (98-107) mmol/L Carbon Dioxide 33 H (22-30) mmol/L BUN 35 H (7-17) mg/dL Glucose 106 H (74-99) mg/dL Magnesium (1.6-2.3) mg/dL Total Bilirubin 1.6 H (0.2-1.3) mg/dL AST 53 H (14-36) U/L ALT 82 H (9-52) U/L Alkaline Phosphatase 134 H (38-126) U/L Troponin I (0.000-0.034) ng/mL Total Protein (6.3-8.2) g/dL Urine Appearance (Clear) Urine Protein (Negative) Urine Glucose (UA) (Negative) Urine Ketones (Negative) Urine Blood (Negative) Urine Bilirubin (Negative) Urine WBC (0-5) /hpf Urine Bacteria (None) /hpf Urine Mucus (None) /hpf 03/30/19 03/30/19 03/30/19 Range/Units 02:37 02:37 02:37 WBC 11.0 H (3.8-10.6) k/uL RBC 5.51 H (3.80-5.40) m/uL Hgb (11.4-16.0) gm/dL Hct 50.1 H (34.0-46.0) % MCHC 30.7 L (31.0-37.0) g/dL RDW (11.5-15.5) % Plt Count 100 L (150-450) k/uL Neutrophils # 9.8 H (1.3-7.7) k/uL Lymphocytes # 0.5 L (1.0-4.8) k/uL APTT (22.0-30.0) sec ABG pCO2 (35-45) mmHg ABG pO2 (83-108) mmHg ABG HCO3 (21-25) mmol/L ABG Total CO2 (19-24) mmol/L ABG O2 Saturation (94-97) % Sodium 163 H* (137-145) mmol/L Potassium 3.3 L (3.5-5.1) mmol/L Chloride 126 H (98-107) mmol/L Carbon Dioxide (22-30) mmol/L BUN 34 H (7-17) mg/dL Glucose 132 H (74-99) mg/dL Magnesium (1.6-2.3) mg/dL Total Bilirubin 1.5 H (0.2-1.3) mg/dL AST 51 H (14-36) U/L ALT 76 H (9-52) U/L Alkaline Phosphatase 129 H (38-126) U/L Troponin I 0.124 H* (0.000-0.034) ng/mL Total Protein 6.1 L (6.3-8.2) g/dL Urine Appearance (Clear) Urine Protein (Negative) Urine Glucose (UA) (Negative) Urine Ketones (Negative) Urine Blood (Negative) Urine Bilirubin (Negative) Urine WBC (0-5) /hpf Urine Bacteria (None) /hpf Urine Mucus (None) /hpf 03/30/19 Range/Units 08:51 WBC (3.8-10.6) k/uL RBC (3.80-5.40) m/uL Hgb (11.4-16.0) gm/dL Hct (34.0-46.0) % MCHC (31.0-37.0) g/dL RDW (11.5-15.5) % Plt Count (150-450) k/uL Neutrophils # (1.3-7.7) k/uL Lymphocytes # (1.0-4.8) k/uL APTT 76.7 H (22.0-30.0) sec ABG pCO2 (35-45) mmHg ABG pO2 (83-108) mmHg ABG HCO3 (21-25) mmol/L ABG Total CO2 (19-24) mmol/L ABG O2 Saturation (94-97) % Sodium (137-145) mmol/L Potassium (3.5-5.1) mmol/L Chloride (98-107) mmol/L Carbon Dioxide (22-30) mmol/L BUN (7-17) mg/dL Glucose (74-99) mg/dL Magnesium (1.6-2.3) mg/dL Total Bilirubin (0.2-1.3) mg/dL AST (14-36) U/L ALT (9-52) U/L Alkaline Phosphatase (38-126) U/L Troponin I (0.000-0.034) ng/mL Total Protein (6.3-8.2) g/dL Urine Appearance (Clear) Urine Protein (Negative) Urine Glucose (UA) (Negative) Urine Ketones (Negative) Urine Blood (Negative) Urine Bilirubin (Negative) Urine WBC (0-5) /hpf Urine Bacteria (None) /hpf Urine Mucus (None) /hpf Microbiology - Last 24 Hours (Table) 03/29/19 18:00 Urine Culture - Preliminary Urine,Catheterized Assessment and Plan Assessment: Metabolic encephalopathy, improving Hypernatremia, improving Elevated troponin, rule out coronary artery disease bulbar/pseudobulbar palsy with possible ALS as per family Hypokalemia Severe dehydration Elevated liver enzymes Mild thrombocytopenia swallowing difficulty at baseline DNR/DNI as per patient and family wishes Plan: This is a 48 years old female who presents with altered mental status, UTI, hypernatremia and beta troponin. Serial troponins, Continue with heparin drip, call cardiology consult. Monitor electrolytes, ceftriaxone, send urine culture and blood culture. Continue with IV fluids. Follow-up liver test.Labs and medication were reviewed.. Continue same treatment. Continue with symptomatic treatment. Resume home medication. Monitor lytes and vitals. DVT and GI prophylaxis. Further recommendations of the clinical course of the patient DVT prophylaxis: heparin GI Prophylaxis: Pepcid Prognosis is guarded
--- NOTE | 2019-03-30 13:11 | CONS ---
CONSULTATION Ms. Pink is a 48-year-old female with a history of progressive bulbar palsy and ALS who is followed at [facility]. She presented was symptoms of progressive weakness, fatigue and collapse. In the emergency room she was noted to have T-wave inversion anteriorly and was initially hypoxemic. She is nonverbal and the history is obtained from her . She has no prior documented history of obstructive coronary artery disease. No history of arrhythmia. She uses BiPAP at night but has not been able to tolerate it. Apparently they have been camping, but according to her , over the last few months she has been progressively getting worse, with progressive loss of weight. The plan was to consider talking to hospice care. Her oral intake has been quite low. She has no dizziness or palpitations. She has not verbalized any chest discomfort. She has been feeling weak. MEDICATIONS: Her medications at home included: 1. Singulair. 2. Cozaar 50 mg daily. 3. Lasix 20 mg daily. 4. Radicava. 5. Ventolin. 6. Atrovent. REVIEW OF SYSTEMS: RESPIRATORY SYSTEM: She has progressive dyspnea. No recent wheezing or cough. GI SYSTEM: Her oral intake has been quite poor. No recent nausea or vomiting, but she has problems swallowing. SYSTEM: No dysuria or hematuria. NERVOUS SYSTEM: She has ALS and what has been labeled in the past progressive bulbar palsy. PHYSICAL EXAMINATION: She is a 48-year-old female who appears older than stated age, on BiPAP. VITAL SIGNS: Blood pressure 118/80 with a heart rate in the 70s. HEAD: Normocephalic. EYES: Sclerae anicteric. NECK: Good carotid upstroke. No bruit. LUNGS: No wheezes or rales. HEART: Regular rate, rhythm. S1, S2. No S3. No rub. ABDOMEN: Soft, nontender. Positive bowel sounds. No organomegaly. EXTREMITIES: No edema. Intact distal pulses. LAB DATA: Lab data revealed a hemoglobin of 16.5, white blood cells of 12.8. On admission her sodium was 165 with a potassium of 2.8, BUN and creatinine of 37 and 0.81. Her troponins 0.143 and 0.120. Her sodium today is down to 163. In December her sodium was 142. Her EKG revealed a sinus mechanism with T-wave inversion involving the inferolateral leads and inferior anterior leads consistent with ischemia. She had an echocardiogram that showed a preserved left ventricular size and systolic function with no significant segmental wall motion abnormality. Her chest x-ray shows no acute infiltrate. IMPRESSION: 1. Progressive weakness and fatigue with hypoxemia and hypernatremia related to her poor oral intake and amyotrophic lateral sclerosis. 2. Troponin elevation, most likely related to hypoxemia and could be hypotension at the same time, representing a mismatch with a type 2 myocardial infarction. 3. History of amyotrophic lateral sclerosis. 4. Prior history of hypertension, stable off treatment at this time. RECOMMENDATIONS: From the cardiac standpoint, will continue on the IV fluids at this time, follow her renal function. I will stop her heparin. Unfortunately she is not a candidate for any aggressive workup, and her has expressed a wish to talk to hospice care for further evaluation. Thank you for this consult. Will follow with you. LEXII / ANITA: [id number] /
--- NOTE | 2019-03-30 13:46 | P.CNPUL ---
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 I think she has more features of bulbar palsy as the patient has difficulties with speech and swallowing and she has become significantly weak and currently she has severe neuromuscular weakness. She was given Radicava treatment for [facility] pH was also placed on BiPAP at home which she had difficulties in tolerating. The patient has been progressively getting weak. She came in with weakness and fatigue and collapse. She was found to have acute hyperchloremic hypernatremia. Most of the information obtained from the who is at the bedside. The patient herself cannot speak at this point in time. Currently she is on a AVAPS mode noninvasive positive pressure ventilation and the patient is tolerating it without any major difficulties and a tidal volume target of 3 on 75 mL. The patient has been losing weight. She has lost significant amount of weight more than 100 pounds according to the . She is having difficulty with feeding. During her last visitation at [facility] she was been told that she is not a candidate for PEG tube insertion. In fact she was asked to go to hospice care. I was asked to evaluate this patient for this regard. Chest x-ray is not showing any abnormalities and the blood gases showing hypercapnic respiratory failure secondary to neuromuscular weakness and the patient's pH was a 7.36 with a pCO2 of 64 and pO2 of 118 on an FiO2 of 100%. Sodium level is at 163 with a chloride level of 126. Troponins were minimally elevated at 0.12. Review of Systems Constitutional: Reports daytime sleepiness, Reports fatigue, Reports poor appetite, Reports weakness, Reports weight loss Eyes: denies as per HPI, denies blurred vision, denies bulging eye, denies decreased vision, denies diplopia, denies discharge, denies dry eye, denies irritation, denies itching, denies pain, denies photophobia, denies loss of peripheral vision, denies loss of vision, denies tunnel vision/blind spots Ears: deny: decreased hearing, ear discharge, earache, tinnitus Ears, nose, mouth and throat: Reports dysphagia, Reports voice changes Breasts: absent: as per HPI, change in shape, gynecomastia, masses, nipple discharge, pain, skin changes, swelling Cardiovascular: Reports as per HPI (Unable to ambulate or walk at this point in time. She is free of any chest pain) Respiratory: Reports as per HPI Gastrointestinal: Reports as per HPI (Unable to swallow at this point in time.) Genitourinary: Reports as per HPI, Reports menorrhagia Musculoskeletal: Reports as per HPI (The patient is nonambulatory secondary to severe ALS/pseudobulbar palsy with neuromuscular weakness), Reports gait dysfunction, Reports limitation of motion Musculoskeletal: absent: ankle pain, ankle stiffness, ankle swelling Integumentary: Denies pruritus, Denies rash Neurological: Reports change in speech, Reports gait dysfunction, Reports lack of coordination, Reports motor disturbance, Reports weakness Psychiatric: Reports as per HPI Endocrine: Reports as per HPI Hematologic/Lymphatic: Reports as per HPI Allergic/Immunologic: Reports as per HPI 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. advanced ALS. Non verbal. doesn't eat much, difficulty swallowing. History of Any Multi-Drug Resistant Organisms: None Reported Past Surgical History: Hysterectomy, Tubal Ligation Additional Past Surgical History / Comment(s): dental surgery Past Anesthesia/Blood Transfusion Reactions: No Reported Reaction Past Psychological History: No Psychological Hx Reported Smoking Status: Former smoker Past Alcohol Use History: None Reported Past Drug Use History: None Reported - Past Family History Father Family Medical History: Unable to Obtain (Yet that was made aware at the later stages of the patient's family history is positive for other family members having similar type of neuromuscular weakness related to ALS/pseudobulbar palsy) Medications and Allergies Home Medications Medication Instructions Recorded Confirmed Type Furosemide [Lasix] 20 mg PO DAILY 10/01/18 03/29/19 History Losartan [Cozaar] 50 mg PO DAILY 10/01/18 03/29/19 History Montelukast [Singulair] 10 mg PO HS 10/01/18 03/29/19 History Albuterol Nebulized [Ventolin 2.5 mg INHALATION RT-Q6H PRN 11/01/18 03/29/19 History Nebulized] Ipratropium Nebulized [Atrovent 0.5 mg INHALATION RT-Q6H PRN 11/01/18 03/29/19 History Nebulized 0.2 MG/ML] Radicava 30mg 30 mg IV DAILY 03/29/19 History Allergies Allergy/AdvReac Type Severity Reaction Status Date / Time peanut Allergy Per Verified 03/29/19 13:43 Allergy Testing Penicillins Allergy Rash/Hives Verified 03/29/19 13:43 Physical Exam Vitals: Vital Signs Temp Pulse Pulse Resp BP BP Pulse Ox 03/30/19 11:55 76 03/30/19 11:51 88 20 118/86 100 03/30/19 11:45 74 03/30/19 08:49 80 03/30/19 08:38 78 03/30/19 08:00 97.6 F 77 19 111/72 100 03/30/19 04:53 98.0 F 80 20 109/69 100 03/29/19 23:16 85 22 101/67 100 03/29/19 20:20 97.7 F 91 21 98/67 100 03/29/19 20:10 100 03/29/19 19:59 100 03/29/19 18:00 98.0 F 110 H 28 H 125/71 97 03/29/19 17:00 101 H 26 H 128/99 97 03/29/19 16:00 89 26 H 123/86 100 03/29/19 15:00 91 28 H 135/92 03/29/19 14:30 97 28 H 136/95 94 L 03/29/19 14:00 100 29 H 134/93 97 Intake and Output 03/29/19 03/30/19 03/30/19 22:59 06:59 14:59 Intake Total 63.137 45.351 Output Total 150 Balance -150 63.137 45.351 Intake: Intake, IV Titration 63.137 45.351 Amount Heparin Sod,Pork in 0.45% 63.137 45.351 NaCl 25,000 unit In 0.45 % NaCl 1 250ml.bag @ 12 UNITS/KG/HR 8.437 mls/hr IV .Q24H [facility] Rx#: [id number] Output: Urine 150 Straight 150 Other: Voiding Method Incontinent Incontinent # Voids 1 Weight 73 kg -GENERAL: The patient is confused on noninvasive positive pressure ventilator machine, she follows simple commands eg raise your hand. She is able to tolerate the AVAPS mode on the machine without any major difficulties. -HEENT: Pupils are round and equally reacting to light. EOMI. No scleral icterus. No conjunctival pallor. Normocephalic, atraumatic. No pharyngeal erythema. No thyromegaly. looks dehydrated CARDIOVASCULAR: S1 and S2 present. No murmurs, rubs, or gallops. PULMONARY: Chest is clear to auscultation, no wheezing or crackles. ABDOMEN: Soft, nontender, nondistended, normoactive bowel sounds. No palpable organomegaly. MUSCULOSKELETAL: No joint swelling or deformity. EXTREMITIES: Examination of the extremities revealed easily palpable radial, femoral and pedal pulses. There was no cyanosis, clubbing or edema. The patient has significant muscle atrophy in all 4 extremities Neurologic examination. There is significant significant motor weakness in all 4 extremities. There is also symmetrical reflexes which are somewhat down. No fasciculation. Status significant motor atrophy in all 4 extremities. No seizure activity. She is awake and alert and following commands and answering questions appropriately through her AVAPS noninvasive positive pressure ventilator mask. SKIN: No skin rashes. skin revealed no evidence of significant rashes, suspicious appearing nevi or other concerning lesions. Results - Laboratory Findings CBC and BMP: 03/30/19 02:37 03/30/19 02:37 ABG ABG pH 7.36 (7.35-7.45) 03/29/19 14:12 ABG pCO2 64 mmHg (35-45) H 03/29/19 14:12 ABG pO2 218 mmHg (83-108) H 03/29/19 14:12 ABG O2 Saturation 99.7 % (94-97) H 03/29/19 14:12 PT/INR, D-dimer PT 11.5 sec (9.0-12.0) 03/30/19 00:43 INR 1.1 (<1.2) 03/30/19 00:43 Abnormal lab findings: Abnormal Labs 03/29/19 03/29/19 03/29/19 13:40 13:40 13:40 WBC 11.7 H RBC 6.11 H Hgb 17.1 H Hct 54.6 H MCHC RDW Plt Count 131 L Neutrophils # 10.3 H Lymphocytes # 0.6 L APTT ABG pCO2 ABG pO2 ABG HCO3 ABG Total CO2 ABG O2 Saturation Sodium 165 H* Potassium 2.8 L Chloride 118 H Carbon Dioxide 38 H BUN 37 H Glucose 191 H Magnesium 2.7 H Total Bilirubin 1.7 H AST 64 H ALT 102 H Alkaline Phosphatase 149 H Troponin I 0.143 H* Total Protein Urine Appearance Urine Protein Urine Glucose (UA) Urine Ketones Urine Blood Urine Bilirubin Urine WBC Urine Bacteria Urine Mucus 03/29/19 03/29/19 03/29/19 14:12 18:00 19:43 WBC RBC Hgb Hct MCHC RDW Plt Count Neutrophils # Lymphocytes # APTT ABG pCO2 64 H ABG pO2 218 H ABG HCO3 36 H ABG Total CO2 38 H ABG O2 Saturation 99.7 H Sodium Potassium Chloride Carbon Dioxide BUN Glucose Magnesium Total Bilirubin AST ALT Alkaline Phosphatase Troponin I 0.120 H* Total Protein Urine Appearance Turbid H Urine Protein 2+ H Urine Glucose (UA) 1+ H Urine Ketones Trace H Urine Blood Small H Urine Bilirubin 2+ H Urine WBC 10 H Urine Bacteria Occasional H Urine Mucus Occasional H 03/29/19 03/29/19 03/30/19 20:15 21:04 00:43 WBC 12.8 H RBC 5.83 H Hgb 16.5 H Hct 52.4 H MCHC RDW 16.5 H Plt Count 75 L Neutrophils # 11.1 H Lymphocytes # 0.9 L APTT 129.2 H* ABG pCO2 ABG pO2 ABG HCO3 ABG Total CO2 ABG O2 Saturation Sodium 165 H* Potassium Chloride 123 H Carbon Dioxide 33 H BUN 35 H Glucose 106 H Magnesium Total Bilirubin 1.6 H AST 53 H ALT 82 H Alkaline Phosphatase 134 H Troponin I Total Protein Urine Appearance Urine Protein Urine Glucose (UA) Urine Ketones Urine Blood Urine Bilirubin Urine WBC Urine Bacteria Urine Mucus 03/30/19 03/30/19 03/30/19 02:37 02:37 02:37 WBC 11.0 H RBC 5.51 H Hgb Hct 50.1 H MCHC 30.7 L RDW Plt Count 100 L Neutrophils # 9.8 H Lymphocytes # 0.5 L APTT ABG pCO2 ABG pO2 ABG HCO3 ABG Total CO2 ABG O2 Saturation Sodium 163 H* Potassium 3.3 L Chloride 126 H Carbon Dioxide BUN 34 H Glucose 132 H Magnesium Total Bilirubin 1.5 H AST 51 H ALT 76 H Alkaline Phosphatase 129 H Troponin I 0.124 H* Total Protein 6.1 L Urine Appearance Urine Protein Urine Glucose (UA) Urine Ketones Urine Blood Urine Bilirubin Urine WBC Urine Bacteria Urine Mucus 03/30/19 08:51 WBC RBC Hgb Hct MCHC RDW Plt Count Neutrophils # Lymphocytes # APTT 76.7 H ABG pCO2 ABG pO2 ABG HCO3 ABG Total CO2 ABG O2 Saturation Sodium Potassium Chloride Carbon Dioxide BUN Glucose Magnesium Total Bilirubin AST ALT Alkaline Phosphatase Troponin I Total Protein Urine Appearance Urine Protein Urine Glucose (UA) Urine Ketones Urine Blood Urine Bilirubin Urine WBC Urine Bacteria Urine Mucus - Diagnostic Findings Chest x-ray: image reviewed Assessment and Plan Plan: 1 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 During her most recent evaluation at [facility], she was advised to go to hospice care 2 chronic hypercapnic respiratory failure secondary to neuromuscular weakness and a sensation with pseudobulbar palsy/ALS 3 inability to swallow secondary to above 4 nonlaboratory and the patient is bedridden secondary to above 5 hyperchloremic hypernatremia due to intravascular volume depletion/dehydration mainly due to lack of oral intake 6 nonspecific troponin leak 7 hypokalemia secondary to above 8 hypertension Plan We'll continue AVAPS mode on the noninvasive positive pressure ventilator.. The patient is a tidal volume of 3 75 mL target and the patient is able to tolerate this without any major difficulties. Continue the free water replacement/supplementation. Unfortunately nothing much can be done in terms of her care long that her disease is terminal and was advised for this patient to seek hospice care. I'm be glad to check her BiPAP machine and see if there is any potential to switch her to a AVAPS mode if possible or get her a different unit knowing that this has helped her considerably and gave her symptomatic relief. DNR/DNI CODE STATUS.
[2019-03-30] MEDS: HEPARIN SODIUM,PORCINE 5,000 UNIT/ML 1 ML VIAL SQ SCH (20:48)
[2019-03-30] MEDS ORDERED: methylPREDNISolone SOD SUCCI 40 MG/ML 1 ML VIAL IV SCH (22:30)
[2019-03-30] MEDS ORDERED: POTASSIUM CHLORIDE 10 MEQ in WATER FOR INJECTION 1 100ML.BAG IVPB STA (22:39)
[2019-03-30] MEDS: LORazepam 2 MG/ML INJ IV PRN (22:56)
[2019-03-30] MEDS: LEVOFLOXACIN 500MG-D5W PMX 500 MG in DEXTROSE/WATER 1 100ML.BAG IVPB SCH (23:06)
[2019-03-30 23:47] LABS: African American GFR (CKD) >90 (>60 ml/min/1.73 sqM); Anion Gap 6 mmol/L; Blood Urea Nitrogen 26 mg/dL (7-17); Calcium 8.9 mg/dL (8.4-10.2); Carbon Dioxide 33 mmol/L (22-30); Chloride 120 mmol/L (98-107); Glucose 159 mg/dL (74-99); Magnesium 2.5 mg/dL (1.6-2.3); Potassium 3.2 mmol/L (3.5-5.1); Sodium 159 mmol/L (137-145)
[2019-03-31] MEDS: LORazepam 2 MG/ML INJ IV PRN ×3 (04:10→21:02)
[2019-03-31 06:59] LABS: Basophils % (A) 0 %; Eosinophils # (A) 0.1 k/uL (0-0.7); Eosinophils % (A) 1 %; HCT 46.2 % (34.0-46.0); HGB 14.1 gm/dL (11.4-16.0); Hypochromasia Moderate; Lymphocytes # (A) 0.7 k/uL (1.0-4.8); Lymphocytes % (A) 8 %; MCH 27.8 pg (25.0-35.0); MCHC 30.5 g/dL (31.0-37.0); MCV 91.1 fL (80.0-100.0); Mean Platelet Volume 9.6; Monocytes # (A) 0.4 k/uL (0-1.0); Monocytes % (A) 5 %; Neutrophils # (A) 7.8 k/uL (1.3-7.7); Neutrophils % (A) 86 %; RBC 5.07 m/uL (3.80-5.40); RDW 15.3 % (11.5-15.5); WBC 9.1 k/uL (3.8-10.6)
[2019-03-31 07:05] LABS: Platelet Count 87 k/uL (150-450)
[2019-03-31 07:22] LABS: ALT 104 U/L (9-52); AST 110 U/L (14-36); African American GFR (CKD) >90 (>60 ml/min/1.73 sqM); Albumin 3.2 g/dL (3.5-5.0); Alkaline Phosphatase 109 U/L (38-126); Anion Gap 5 mmol/L; Blood Urea Nitrogen 22 mg/dL (7-17); Calcium 8.9 mg/dL (8.4-10.2); Carbon Dioxide 33 mmol/L (22-30); Chloride 117 mmol/L (98-107); Glucose 144 mg/dL (74-99); Magnesium 2.4 mg/dL (1.6-2.3); Potassium 3.3 mmol/L (3.5-5.1); Sodium 155 mmol/L (137-145); Total Bilirubin 1.8 mg/dL (0.2-1.3); Total Protein 5.9 g/dL (6.3-8.2)
[2019-03-31] MEDS: BUDESONIDE 0.5 MG/2 ML NEBU INHALATION SCH ×2 (07:30→19:48)
[2019-03-31] MEDS: IPRATROPIUM-ALBUTEROL 3 ML NEB INHALATION SCH ×4 (07:30→19:49)
[2019-03-31] MEDS ORDERED: Potassium Replacement Protocol 1 EACH MISC MISCELLANE PRN (07:31)
[2019-03-31] MEDS ORDERED: POTASSIUM CHLORIDE 20 MEQ in WATER FOR INJECTION 1 100ML.BAG IVPB SCH ×2 (07:45→09:00)
[2019-03-31] MEDS: HEPARIN SODIUM,PORCINE 5,000 UNIT/ML 1 ML VIAL SQ SCH ×2 (08:47→21:02)
[2019-03-31] MEDS: POTASSIUM CHLORIDE 20 MEQ in SODIUM CHLORIDE 0.9% 100 ML IV SCH ×3 (08:47→13:09)
[2019-03-31] MEDS: methylPREDNISolone SOD SUCCI 40 MG/ML 1 ML VIAL IV SCH ×2 (08:47→21:03)
--- NOTE | 2019-03-31 10:00 | PN ---
PROGRESS NOTE Mrs. Pink is a 48-year-old female with a history of ALS and progressive multiple bulbar palsy who presented with collapse and severe weakness. She was noted to have severe hypernatremia on presentation. She is nonverbal. She has continued to have significant problem with her speech and swallowing and severe weakness. There is no evidence of arrhythmia. She continues to be on the IV fluid. She was seen yesterday by Dr. Hartley to adjust her AVAPS. She continues to be on a potassium supplementation as well as IV fluid. PHYSICAL EXAMINATION: Blood pressure 118/70 with a heart rate in the 90s. LUNGS: Clear. HEART: Regular rate and rhythm S1, S2. No S3. No rub. ABDOMEN: Soft, nontender. EXTREMITIES: No edema. LAB DATA: Revealed sodium of 155 with potassium 3.3, BUN and creatinine 22 and 0.49. Her sodium on presentation was 165. IMPRESSION: 1. Progressive muscular weakness with severe degenerative disease and with pseudobulbar palsy and Amyotrophic lateral sclerosis. 2. Hyperchloremic hypernatremic, improving with volume depletion and dehydration. 3. Troponin elevation do not present myocardial infarction. 4. Hypercapnic respiratory failure on the AVAPS. RECOMMENDATION: From the cardiac standpoint, we will continue on replacing her free water to help improve her sodium. Cardiac-vee, no further workup will be needed. We will see her on as-needed basis. Please feel free to call us for any questions. MMODL / IJN: [id number] /
--- NOTE | 2019-03-31 12:49 | P.PN ---
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 I think she has more features of bulbar palsy as the patient has difficulties with speech and swallowing and she has become significantly weak and currently she has severe neuromuscular weakness. She was given Radicava treatment for [facility] pH was also placed on BiPAP at home which she had difficulties in tolerating. The patient has been progressively getting weak. She came in with weakness and fatigue and collapse. She was found to have acute hyperchloremic hypernatremia. Most of the information obtained from the who is at the bedside. The patient herself cannot speak at this point in time. Currently she is on a AVAPS mode noninvasive positive pressure ventilation and the patient is tolerating it without any major difficulties and a tidal volume target of 3 on 75 mL. The patient has been losing weight. She has lost sign ificant amount of weight more than 100 pounds according to the . She is having difficulty with feeding. During her last visitation at [facility] she was been told that she is not a candidate for PEG tube insertion. In fact she was asked to go to hospice care. I was asked to evaluate this patient for this regard. Chest x-ray is not showing any abnormalities and the blood gases showing hypercapnic respiratory failure secondary to neuromuscular weakness and the patient's pH was a 7.36 with a pCO2 of 64 and pO2 of 118 on an FiO2 of 100%. Sodium level is at 163 with a chloride level of 126. Troponins were minimally elevated at 0.12. On 03/31/2019 patient seen in follow-up on selective care unit. She is resting in bed, currently on BiPAP in the event mode with target volume of 375 ML, with minimal pressure support of 10, with a maximum pressure support of 20, EPAP of 6, and FiO2 of 30%, with I time of 1.00. He is tolerating it rather well. Her lung sounds are diminished, but better air entry noted bilaterally, compared to yesterday. Her spouse of one home to bring her BiPAP unit to the hospital, and have the AVAPS mode set up. For now patient is tolerating it well. She is rather weak, and it's hard for her to verbalize, especially with the BiPAP mask on, but she is maintaining good oxygenation, she is afebrile, hemodynamically stable, days labs have been noted, white blood cell, is 9.1, hemoglobin is 14.1, platelet count is 87, serum sodium is trending down, down to 155, and now were told that the D5W infusion has been discontinued, we will restart it, serum potassium is 3.3, chloride is 117, CO2 33, B1 is 22 creatinine 0.49. Objective - Vital Signs Vital signs: Vital Signs Temp 97.8 F 03/31/19 08:00 Pulse 78 03/31/19 11:26 Resp 19 03/31/19 08:00 BP 118/79 03/31/19 08:00 Pulse Ox 100 03/31/19 08:00 Intake & Output 03/30/19 03/31/19 03/31/19 18:59 06:59 18:59 Intake Total 702.985 7449 Output Total 1000 300 Balance 445.351 100 -300 Weight 74 kg Intake: Intake, IV Titration 371.630 7548 Amount Dextrose 5% in Water 1, 300 900 000 ml @ 100 mls/hr IV . Q10H [facility] Rx#:[id number] Heparin Sod,Pork in 0.45% 45.351 NaCl 25,000 unit In 0.45 % NaCl 1 250ml.bag @ 12 UNITS/KG/HR 8.437 mls/hr IV .Q24H [facility] Rx#: [id number] Levofloxacin 500Mg-D5w 100 Pmx 500 mg In Dextrose/ Water 1 100ml.bag @ 100 mls/hr IVPB Q24H [facility] Rx#: [id number] Potassium Chloride 10 meq 100 In Water For Injection 1 100ml.bag @ 100 mls/hr IVPB ONCE [facility] Rx#: [id number] Potassium Chloride 20 meq 100 In Water For Injection 1 100ml.bag @ 50 mls/hr IVPB ONCE [facility] Rx#: [id number] Output: Urine 1000 300 Straight 500 Other: Voiding Method Incontinent # Voids 1 1 # Bowel Movements 1 - Exam GENERAL EXAM: Alert, quite weak 48-year-old white female, on BiPAP support in AVAPs mode comfortable in no apparent distress. HEAD: Normocephalic/atraumatic. EYES: Normal reaction of pupils, equal size. Conjunctiva pink, sclera white. NOSE: Clear with pink turbinates. THROAT: No erythema or exudates. NECK: No masses, no JVD, no thyroid enlargement, no adenopathy. CHEST: No chest wall deformity. Symmetrical expansion. LUNGS: Equal air entry with no crackles, wheeze, rhonchi or dullness. Diminished breath sounds bilaterally CVS: Regular rate and rhythm, normal S1 and S2, no gallops, no murmurs, no rubs ABDOMEN: Soft, nontender. No hepatosplenomegaly, normal bowel sounds, no guarding or rigidity. EXTREMITIES: No clubbing, no edema, no cyanosis, 2+ pulses and upper and lower extremities. MUSCULOSKELETAL: Muscle strength and tone normal. SPINE: No scoliosis or deformity SKIN: No rashes CENTRAL NERVOUS SYSTEM: Alert and oriented -2. No focal deficits, tone is normal in all 4 extremities. PSYCHIATRIC: Alert and oriented -2. Appropriate affect. Intact judgment and insight. - Labs CBC & Chem 7: 03/31/19 06:35 03/31/19 06:35 Labs: Abnormal Lab Results - Last 24 Hours (Table) 03/30/19 03/31/19 03/31/19 Range/Units 23:20 06:35 06:35 Hct 46.2 H (34.0-46.0) % MCHC 30.5 L (31.0-37.0) g/dL Plt Count 87 L (150-450) k/uL Neutrophils # 7.8 H (1.3-7.7) k/uL Lymphocytes # 0.7 L (1.0-4.8) k/uL Sodium 159 H 155 H (137-145) mmol/L Potassium 3.2 L 3.3 L (3.5-5.1) mmol/L Chloride 120 H 117 H (98-107) mmol/L Carbon Dioxide 33 H 33 H (22-30) mmol/L BUN 26 H 22 H (7-17) mg/dL Creatinine 0.49 L (0.52-1.04) mg/dL Glucose 159 H 144 H (74-99) mg/dL Magnesium 2.5 H 2.4 H (1.6-2.3) mg/dL Total Bilirubin 1.8 H (0.2-1.3) mg/dL AST 110 H (14-36) U/L ALT 104 H (9-52) U/L Total Protein 5.9 L (6.3-8.2) g/dL Albumin 3.2 L (3.5-5.0) g/dL Microbiology - Last 24 Hours (Table) 03/29/19 19:43 Blood Culture - Preliminary Blood No Growth after 24 hours 03/29/19 18:00 Urine Culture - Preliminary Urine,Catheterized Gram Neg Bacilli Assessment and Plan Plan: 1 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 During her most recent evaluation at [facility], she was advised to go to hospice care 2 chronic hypercapnic respiratory failure secondary to neuromuscular weakness and a sensation with pseudobulbar palsy/ALS 3 inability to swallow secondary to above 4 nonlaboratory and the patient is bedridden secondary to above 5 hyperchloremic hypernatremia due to intravascular volume depletion/dehydration mainly due to lack of oral intake 6 nonspecific troponin leak 7 hypokalemia secondary to above 8 hypertension Plan: We'll continue AVAPS mode of ventilation, and patient's spouse went home to bring her BiPAP unit to the hospital, patient is tolerating it well, she is comfortable. She remains nothing by mouth, her sodium is trending down, but remains elevated, at 155, will restart her D5W at a rate of 100, serum potassium is low we'll have to replace it per protocol. 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 I performed a history & physical examination of the patient and discussed their management with my nurse practitioner, Rajani Keyes. I reviewed the nurse practitioner's note and agree with the documented findings and plan of care. Lung sounds are positive for diminished breath sounds. The findings and the impression was discussed with the patient. I attest to the documentation by the nurse practitioner. Time with Patient: Less than 30
[2019-03-31] MEDS: DEXTROSE 5% IN WATER 1,000 ML IV SCH ×2 (13:09→23:56)
--- NOTE | 2019-03-31 14:06 | P.PN ---
Subjective This is a pleasant 48 years old female with past medical history of hysterectomy, pseudobulbar palsy with difficulty swallowing food 10 drinks, hem aturia, and UTI secondary to multidrug sensitive E. coli. Presents with altered mental status, she was on a trip with family and for 3-4 day, she was complaining from symptoms however on arriving home she could not get out of the car and she was confused . currently pt can provide informatino pt has history of bulbar/pseudobulbar palsy, and she has history of difficulty eating and drinking , she uses a suction to help her whenever she eats, she sees a neurologist at [facility] and recently at [facility], Dr. Katz offered PEG tube to her before but she declined , now he think it is too late for her to get PEG tube. as per at bed side she co mmunicate through her phone by text example she text one word like "ice cream" or "Help" On admission blood pressure 136/95, she is on BiPAP, afebrile labs reviewed showing leukocytosis of 11.7, hematocrit of 54.6, hemoglobin of 17.1, platelets of 131 and elevated sodium of 165, low potassium of 2.8, creatinine normal at 0.8, baseline 0.4, elevated liver enzymes of 102 and 149, bilirubin is slightly elevated at 1.7, troponin is high at 0.14, urinalysis is suspicious for infection. Computed tomography scan of the brain is negative for acute process. Chest x-ray showing chronic changes without acute pulmonary disease. Emergency room physician discussed the case with doctor Dr. khan from [facility] who recommended heparin drip told me her wishes is to be ( no intubation) and after discussing with family he told bed side RN he does not want chest compression either , and he want her to be DNR. s/w staff. 03/30/2019 Patient is more awake and interactive today, she can move her hands more freely. She still have difficulty communicating which is close to her baseline. Husba nd and family at bedside. And they think that she is improving as well. Patient denies abdominal pain or suprapubic discomfort. No urinary complaints. Vital to showing a blood pressure 111/72, patient is afebrile. She is saturating 96% on FiO2 of 70%. Labs showing mild leukocytosis of 11 K, im proving. Her sodium level is still 163 this morning, and low potassium at 3.3 been replaced. Patient is on D5 W at 50 mm per hour, increase to 100 mL per hour. She is on low dose steroids and bronchodilator. Heparin drip was stopped 03/31/2019 Patient was becoming more alert, and then she became agitated however her urinalysis showed evidence of infection and patient was started on antibiotics for urinary tract infection. Patient needed Ativan for agitation last night and she is more sleepy this morning, she still needs the BiPAP.. Sodium come down to 155, continue with D5 W at 100 mL per hour. And follow-up sodium level.leukocytosis improved back to normal at 9.1K. Platelets stable at 87.liver enzymes are still mildly to moderately elevated were going to check for acute hepatitis panel and liver ultrasound.discussed with family at bedside and their questions were answered Discussed with staff Review of systems: Non-applicable Medication: Albuterol 0.5 mg, ipratropium 3 mg, Pulmicort 0.5 mg, dextrose water 5% at 100 L/h, Solu-Medrol 40 mg, potassium chloride per protocol Objective - Vital Signs Vital signs: Vital Signs Temp 97.8 F 03/31/19 08:00 Pulse 78 03/31/19 11:26 Resp 19 03/31/19 08:00 BP 118/79 03/31/19 08:00 Pulse Ox 100 03/31/19 08:00 Intake & Output 03/30/19 03/31/19 03/31/19 18:59 06:59 18:59 Intake Total 224.402 7084 Output Total 1000 300 Balance 445.351 100 -300 Weight 74 kg Intake: Intake, IV Titration 525.158 3115 Amount Dextrose 5% in Water 1, 300 900 000 ml @ 100 mls/hr IV . Q10H [facility] Rx#:[id number] Heparin Sod,Pork in 0.45% 45.351 NaCl 25,000 unit In 0.45 % NaCl 1 250ml.bag @ 12 UNITS/KG/HR 8.437 mls/hr IV .Q24H [facility] Rx#: [id number] Levofloxacin 500Mg-D5w 100 Pmx 500 mg In Dextrose/ Water 1 100ml.bag @ 100 mls/hr IVPB Q24H [facility] Rx#: [id number] Potassium Chloride 10 meq 100 In Water For Injection 1 100ml.bag @ 100 mls/hr IVPB [facility] Rx#: [id number] Potassium Chloride 20 meq 100 In Water For Injection 1 100ml.bag @ 50 mls/hr IVPB ONCE STA Rx#: [id number] Output: Urine 1000 300 Straight 500 Other: Voiding Method Incontinent # Voids 1 1 # Bowel Movements 1 - Exam -GENERAL: The patient is confused on BiPAP machine, she follows simple commands eg raise your hand, better than on admission. Patient is more interactive -HEENT: Pupils are round and equally reacting to light. EOMI. No scleral icterus. No conjunctival pallor. Normocephalic, atraumatic. No pharyngeal erythema. No thyromegaly. CARDIOVASCULAR: S1 and S2 present. No murmurs, rubs, or gallops. PULMONARY: Chest is clear to auscultation, no wheezing or crackles. ABDOMEN: Soft, nontender, nondistended, normoactive bowel sounds. No palpable organomegaly. MUSCULOSKELETAL: No joint swelling or deformity. EXTREMITIES: No cyanosis, clubbing, or pedal edema. NEUROLOGICAL: Gross neurological examination did not reveal any focal deficits. SKIN: No rashes. - Labs CBC & Chem 7: 03/31/19 06:35 03/31/19 06:35 Labs: Abnormal Lab Results - Last 24 Hours (Table) 03/30/19 03/31/19 03/31/19 Range/Units 23:20 06:35 06:35 Hct 46.2 H (34.0-46.0) % MCHC 30.5 L (31.0-37.0) g/dL Plt Count 87 L (150-450) k/uL Neutrophils # 7.8 H (1.3-7.7) k/uL Lymphocytes # 0.7 L (1.0-4.8) k/uL Sodium 159 H 155 H (137-145) mmol/L Potassium 3.2 L 3.3 L (3.5-5.1) mmol/L Chloride 120 H 117 H (98-107) mmol/L Carbon Dioxide 33 H 33 H (22-30) mmol/L BUN 26 H 22 H (7-17) mg/dL Creatinine 0.49 L (0.52-1.04) mg/dL Glucose 159 H 144 H (74-99) mg/dL Magnesium 2.5 H 2.4 H (1.6-2.3) mg/dL Total Bilirubin 1.8 H (0.2-1.3) mg/dL AST 110 H (14-36) U/L ALT 104 H (9-52) U/L Total Protein 5.9 L (6.3-8.2) g/dL Albumin 3.2 L (3.5-5.0) g/dL Microbiology - Last 24 Hours (Table) 03/29/19 19:43 Blood Culture - Preliminary Blood No Growth after 24 hours 03/29/19 18:00 Urine Culture - Preliminary Urine,Catheterized Gram Neg Bacilli Assessment and Plan Assessment: Metabolic encephalopathy, improving Hypernatremia, improving Elevated troponin, rule out coronary artery disease. Cardiology following the case. bulbar/pseudobulbar palsy with possible ALS elevated liver enzymes. Hypokalemia Severe dehydration, improving Mild thrombocytopenia swallowing difficulty at baseline DNR/DNI as per patient and family wishes Plan: This is a 48 years old female who presents with altered mental status, UTI, hypernatremia and beta troponin. cardiology input is appreciated.. Monitor el ectrolytes, ceftriaxone, send urine culture and blood culture. Continue with IV fluids. Follow-up liver test.check liver ultrasound and acute hepatitis panel.Labs and medication were reviewed.. Continue same treatment. Continue with symptomatic treatment. Resume home medication. Monitor lytes and vitals. DVT and GI prophylaxis. Further recommendations of the clinical course of the patient DVT prophylaxis: heparin GI Prophylaxis: Pepcid Prognosis is guarded
[2019-03-31] MEDS ORDERED: ACETAMINOPHEN SUPPOSITORY 650 MG SUPP RECTAL PRN (15:49)
--- NOTE | 2019-03-31 16:37 | US ---
EXAMINATION TYPE: US liver DATE OF EXAM: 03/31/2019 COMPARISON: CT CLINICAL HISTORY: elevated liver enzymes. Elevated LFT's, poor historian, has ALS EXAM MEASUREMENTS: Liver Length: 17.0 cm Gallbladder Wall: 0.5 cm CBD: 0.4 cm Right Kidney: 9.7 x 4.7 x 5.5 cm Difficult exam, pt immobile, unresponsive, has ALS Pancreas: wnl, tail obscured by overlying bowel gas Liver: Visualized portions appeared wnl Gallbladder: Lumen appears filled with sludge and gallstone within sludge/ wall thickened Evidence for sonographic Jett's sign: Pt unresponsive CBD: wnl Right Kidney: Difficult to visualize due to overlying bowel gas IMPRESSION: There is echogenic bile and gallstones. No dilated ducts. There is gallbladder wall thick ening to 5 mm that could relate to cholecystitis.
[2019-03-31] MEDS: LEVOFLOXACIN 500MG-D5W PMX 500 MG in DEXTROSE/WATER 1 100ML.BAG IVPB SCH (23:55)
[2019-04-01] MEDS: LORazepam 2 MG/ML INJ IV PRN ×4 (03:34→19:56)
[2019-04-01 07:47] LABS: Basophils % (A) 0 %; Eosinophils # (A) 0.1 k/uL (0-0.7); Eosinophils % (A) 1 %; HCT 42.5 % (34.0-46.0); HGB 13.1 gm/dL (11.4-16.0); Hypochromasia Slight; Lymphocytes # (A) 0.7 k/uL (1.0-4.8); Lymphocytes % (A) 12 %; MCH 27.6 pg (25.0-35.0); MCHC 30.7 g/dL (31.0-37.0); Mean Platelet Volume 9.8; Monocytes # (A) 0.2 k/uL (0-1.0); Monocytes % (A) 4 %; Neutrophils # (A) 4.6 k/uL (1.3-7.7); Neutrophils % (A) 81 %; RBC 4.72 m/uL (3.80-5.40); RDW 15.2 % (11.5-15.5); WBC 5.6 k/uL (3.8-10.6)
[2019-04-01 07:50] LABS: Platelet Count 84 k/uL (150-450)
[2019-04-01 08:00] LABS: ALT 197 U/L (9-52); AST 187 U/L (14-36); African American GFR (CKD) >90 (>60 ml/min/1.73 sqM); Alkaline Phosphatase 109 U/L (38-126); Anion Gap 2 mmol/L; Blood Urea Nitrogen 18 mg/dL (7-17); Calcium 8.9 mg/dL (8.4-10.2); Carbon Dioxide 33 mmol/L (22-30); Chloride 115 mmol/L (98-107); Glucose 153 mg/dL (74-99); Potassium 3.4 mmol/L (3.5-5.1); Sodium 150 mmol/L (137-145); Total Bilirubin 2.2 mg/dL (0.2-1.3); Total Protein 5.4 g/dL (6.3-8.2)
[2019-04-01] MEDS: IPRATROPIUM-ALBUTEROL 3 ML NEB INHALATION SCH ×4 (08:52→19:56)
[2019-04-01] MEDS: BUDESONIDE 0.5 MG/2 ML NEBU INHALATION SCH ×2 (08:52→19:56)
[2019-04-01] MEDS: HEPARIN SODIUM,PORCINE 5,000 UNIT/ML 1 ML VIAL SQ SCH ×2 (09:21→20:01)
[2019-04-01] MEDS: methylPREDNISolone SOD SUCCI 40 MG/ML 1 ML VIAL IV SCH ×2 (09:21→19:58)
--- NOTE | 2019-04-01 12:43 | P.PN ---
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 and [facility]. I think she has more features of bulbar palsy as the patient has difficulties with speech and swallowing and she has become significantly weak and currently she has severe neuromuscular weakness. She was given Radicava treatment for [facility] pH was also placed on BiPAP at home which she had difficulties in tolerating. The patient has been progressively getting weak. She came in with weakness and fatigue and collapse. She was found to have acute hyperchloremic hypernatremia. Most of the information obtained from the who is at the bedside. The patient herself cannot speak at this point in time. Currently she is on a AVAPS mode noninvasive positive pressure ventilation and the patient is tolerating it without any major difficulties and a tidal volume target of 3 on 75 mL. The patient has been losing weight. She has lost sign ificant amount of weight more than 100 pounds according to the . She is having difficulty with feeding. During her last visitation at [facility] she was been told that she is not a candidate for PEG tube insertion. In fact she was asked to go to hospice care. I was asked to evaluate this patient for this regard. Chest x-ray is not showing any abnormalities and the blood gases showing hypercapnic respiratory failure secondary to neuromuscular weakness and the patient's pH was a 7.36 with a pCO2 of 64 and pO2 of 118 on an FiO2 of 100%. Sodium level is at 163 with a chloride level of 126. Troponins were minimally elevated at 0.12. On 03/31/2019 patient seen in follow-up on selective care unit. She is resting in bed, currently on BiPAP in the event mode with target volume of 375 ML, with minimal pressure support of 10, with a maximum pressure support of 20, EPAP of 6, and FiO2 of 30%, with I time of 1.00. He is tolerating it rather well. Her lung sounds are diminished, but better air entry noted bilaterally, compared to yesterday. Her spouse of one home to bring her BiPAP unit to the hospital, and have the AVAPS mode set up. For now patient is tolerating it well. She is rather weak, and it's hard for her to verbalize, especially with the BiPAP mask on, but she is maintaining good oxygenation, she is afebrile, hemodynamically stable, days labs have been noted, white blood cell, is 9.1, hemoglobin is 14.1, platelet count is 87, serum sodium is trending down, down to 155, and now were told that the D5W infusion has been discontinued, we will restart it, serum potassium is 3.3, chloride is 117, CO2 33, B1 is 22 creatinine 0.49. On 04/01/2019 patient seen in follow-up on selective care unit. Currently she is off the AVAPS/Bipap, on nasal cannula, at 4 L, the RT said that she had been off for about an hour, and she started to look CT, and there is diminished air entry noted bilaterally, place the patient back on AVAPS/NPPES. Patient's husba nd is at the bedside, and he is currently trying to obtain a Trilogy ventilator for home use. The previous BiPAP unit was from [facility], however apparently they do not supply Trilogy ventilators, and I will speak to discharge planning about this issue. Patient is extremely weak, she is not able to speak, she communicates with gestures, mainly with the affirmative or negative reaction mainly, with her gestures of her hand. She had been nothing by mouth for several days, she remains on D5 W at a rate of 100, and on today's labs her serum sodium is improving, down to 150, from 155, potassium 3.4, chloride is 1:15, CO2 is 33, B1 is 18, creatinine 0.49. Liver enzymes are on the rise, with a total bilirubin of 2.2, AST is 187, ALT is 197, alkaline phosphatase x-ray came down, down to 109. Patient denies any abdominal pain, ultrasound of the gallbladder showed some echogenic bile and gallstones, no dilated ducts. Patient remains on IV antibiotics. Blood culture showed no growth, urine culture was positive for E. coli with P and sensitivity. No fever or chills, no leukocytosis. Patient and the family did meet with hospice over the weekend, and apparently the plan is to transition to hospice care after discharge. Objective - Vital Signs Vital signs: Vital Signs Temp 96.9 F L 04/01/19 11:54 Pulse 88 04/01/19 12:16 Resp 20 04/01/19 11:54 BP 108/76 04/01/19 11:54 Pulse Ox 100 04/01/19 11:54 Intake & Output 03/31/19 04/01/19 04/01/19 18:59 06:59 18:59 Intake Total 800 0 Output Total 550 600 Balance 250 -600 Weight 72.5 kg Intake: Intake, IV Titration 800 Amount Dextrose 5% in Water 1, 500 000 ml @ 100 mls/hr IV . Q10H [facility] Rx#:[id number] Potassium Chloride 20 meq 300 In Sodium Chloride 0.9% 100 ml @ 55 mls/hr IV Q2H [facility] Rx#:[id number] Oral 0 Output: Urine 550 600 Other: Voiding Method Bedside Commode # Voids 1 # Bowel Movements 1 - Exam GENERAL EXAM: Alert, quite weak 48-year-old white female, currently on 4 L of oxygen, patient is looking quite fatigued HEAD: Normocephalic/atraumatic. EYES: Normal reaction of pupils, equal size. Conjunctiva pink, sclera white. NOSE: Clear with pink turbinates. THROAT: No erythema or exudates. NECK: No masses, no JVD, no thyroid enlargement, no adenopathy. CHEST: No chest wall deformity. Symmetrical expansion. LUNGS: Equal air entry with no crackles, wheeze, rhonchi or dullness. Diminished breath sounds bilaterally CVS: Regular rate and rhythm, normal S1 and S2, no gallops, no murmurs, no rubs ABDOMEN: Soft, nontender. No hepatosplenomegaly, normal bowel sounds, no guarding or rigidity. EXTREMITIES: No clubbing, no edema, no cyanosis, 2+ pulses and upper and lower extremities. MUSCULOSKELETAL: Muscle strength and tone normal. SPINE: No scoliosis or deformity SKIN: No rashes CENTRAL NERVOUS SYSTEM: Alert and oriented -2. No focal deficits, diffuse severe muscle weakness, and the patient cannot speak, but she is able to communicate with hand gestures - Labs CBC & Chem 7: 04/01/19 07:04/01/19 07: Labs: Abnormal Lab Results - Last 24 Hours (Table) 04/01/19 04/01/19 Range/Units : 07: MCHC 30.7 L (31.0-37.0) g/dL Plt Count 84 L (150-450) k/uL Lymphocytes # 0.7 L (1.0-4.8) k/uL Sodium 150 H (137-145) mmol/L Potassium 3.4 L (3.5-5.1) mmol/L Chloride 115 H (98-107) mmol/L Carbon Dioxide 33 H (22-30) mmol/L BUN 18 H (7-17) mg/dL Creatinine 0.49 L (0.52-1.04) mg/dL Glucose 153 H (74-99) mg/dL Total Bilirubin 2.2 H (0.2-1.3) mg/dL AST 187 H (14-36) U/L ALT 197 H (9-52) U/L Total Protein 5.4 L (6.3-8.2) g/dL Albumin 3.0 L (3.5-5.0) g/dL Microbiology - Last 24 Hours (Table) 03/29/19 19:43 Blood Culture - Preliminary Blood No Growth after 48 hours 03/29/19 18:00 Urine Culture - Final Urine,Catheterized Escherichia coli Assessment and Plan Plan: 1 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 During her most recent evaluation at [facility], she was advised to go to hospice care 2 chronic hypercapnic respiratory failure secondary to neuromuscular weakness and a sensation with pseudobulbar palsy/ALS 3 inability to swallow secondary to above 4 nonlaboratory and the patient is bedridden secondary to above 5 hyperchloremic hypernatremia due to intravascular volume depletion/dehydration mainly due to lack of oral intake 6 nonspecific troponin leak 7 hypokalemia secondary to above 8 hypertension Plan: We spoke to discharge planning regarding the arrangement of trilogy ventilator for home use. Continue current medical treatment, patient remains pretty much AVAPS/Bipap dependent at this time, she was able to come off for short period of time and became quite fatigued. Apparently the patient's family and the patient met with the hospice and the plan is to transition to hospice to discharge, supportive care right now. Patient will need AVAPS at home with target volume of 375 ML, minimal pressure support of 10, with a maximum pressure-support of 20, EPAP of 6, and FiO2 of 30% with I time of 1.00. I performed a history & physical examination of the patient and discussed their management with my nurse practitioner, Rajani Keyes. I reviewed the nurse practitioner's note and agree with the documented findings and plan of care. Lung sounds are positive for diminished breath sounds. The findings and the impression was discussed with the patient. I attest to the documentation by the nurse practitioner. Time with Patient: Less than 30
[2019-04-01 13:02] LABS: Hepatitis A Antibody IgM Non-Reactive (Non-Reactive); Hepatitis B Core IgM Non-Reactive (Non-Reactive)
[2019-04-01] MEDS: DEXTROSE 5% IN WATER 1,000 ML IV SCH ×2 (15:37→20:01)
[2019-04-01] MEDS ORDERED: Potassium Replacement Protocol 1 EACH MISC MISCELLANE PRN (19:00)
--- NOTE | 2019-04-01 19:44 | P.PN ---
Progress Note - Text Progress Note Date: 04/01/19 Presenting complaint: Tired Interval history: This is a patient with known history of progressive bulbar palsy has been evaluated at [facility] and [facility]. Patient was last told that she'll be probably an appropriate candidate for hospice. Patient in the week ago was able to walk slowly. Was starting some liquid diet. When patient and her were coming back from camping patient not able to come out of the car. And patient admitted for the same. Patient now is barely able to eat. Has a BiPAP in place. Able to communicate some. Today-has a BiPAP in place. Not aged eaten anything. Tired. All the history is by the at the bedside. Informational visit with hospice has been done Review of systems: Was done for constitutional, cardiovascular, GI, pulmonary. relevant finding as above Current medications reviewed that included: DuoNeb On examination: VITAL SIGNS: 96.9, 87, 20, 108/76, 100% on BiPAP GENERAL APPEARANCE: Laying in bed, tired appearing, on a BiPAP. EYES: Pupils equal. Conjunctiva normal. NECK: JVD unable to assess. Mass not palpable. RESPIRATORY: Respiratory effort increased. Lungs decreased breath sounds. CARDIOVASCULAR: First and second sounds normal. No edema. ABDOMEN: Soft. Liver and spleen not palpable. No tenderness. No mass palpable. PSYCHIATRY: Lethargic but arousable able to follow some simple commands NEUROLOGICAL:. Able to move her limbs. Follows simple commands Investigations, reviewed in the clinical context: Sodium 150, potassium 3.4, BNP 18, creatinine 0.49, total bilirubin 2.2 albumin 3.0 Assessment: -Acute progression of pseudobulbar palsy with poor prognosis. -Acute on chronic hypercapnic respiratory failure due to pseudobulbar palsy -Medical debility -Hypernatremia due to free water deficit, due to poor oral intake -Chronic dysphagia due to pseudobulbar palsy -Hypokalemia -Hypertension - bilirubinemia Plan: Continue with BiPAP support. Of particular type of BiPAP is being ordered through pulmonary service. Comfort feeding to continue. Continue with D5W. Advanced care planning: Care was discussed at length with the at the bedside. The patient itself not able to partake in the discussion. He understands prognosis is not good. He does want to use the BiPAP to keep the patient comfortable. He does understand this could be a bridging process. Per patient's wishes no artificial feeding or 2 feeding to be done. Patient is a DO NOT RESUSCITATE. He wishes to take the patient home. With home health. Awaiting BiPAP arranged. Depending how the patient does then he'll decide about hospice care. And finalize the same. As patient was eating some told about a few days ago he is hoping she may perk up again.. But he does understand overall picture is an prognosis is not good. Total time spent during this was about 20 minutes.
[2019-04-01] MEDS: POTASSIUM CHLORIDE 10 MEQ in WATER FOR INJECTION 1 100ML.BAG IVPB SCH ×2 (19:51→21:57)
[2019-04-02] MEDS: POTASSIUM CHLORIDE 10 MEQ in WATER FOR INJECTION 1 100ML.BAG IVPB SCH ×2 (00:01→02:06)
[2019-04-02] MEDS: LORazepam 2 MG/ML INJ IV PRN ×5 (00:07→23:47)
[2019-04-02] MEDS: LEVOFLOXACIN 500MG-D5W PMX 500 MG in DEXTROSE/WATER 1 100ML.BAG IVPB SCH ×2 (02:11→22:04)
[2019-04-02] MEDS: DEXTROSE 5% IN WATER 1,000 ML IV SCH ×2 (06:19→16:04)
[2019-04-02 07:36] LABS: Basophils % (A) 0 %; Eosinophils % (A) 0 %; HCT 42.7 % (34.0-46.0); HGB 13.5 gm/dL (11.4-16.0); Hypochromasia Slight; Lymphocytes # (A) 0.8 k/uL (1.0-4.8); Lymphocytes % (A) 15 %; MCH 28.1 pg (25.0-35.0); MCHC 31.6 g/dL (31.0-37.0); Mean Platelet Volume 9.9; Monocytes # (A) 0.3 k/uL (0-1.0); Monocytes % (A) 5 %; Neutrophils # (A) 4.3 k/uL (1.3-7.7); Neutrophils % (A) 78 %; RDW 15.7 % (11.5-15.5); WBC 5.5 k/uL (3.8-10.6)
[2019-04-02 07:39] LABS: Platelet Count 76 k/uL (150-450)
[2019-04-02 07:50] LABS: ALT 265 U/L (9-52); AST 228 U/L (14-36); African American GFR (CKD) >90 (>60 ml/min/1.73 sqM); Albumin 2.9 g/dL (3.5-5.0); Alkaline Phosphatase 109 U/L (38-126); Anion Gap 3 mmol/L; Blood Urea Nitrogen 15 mg/dL (7-17); Calcium 8.7 mg/dL (8.4-10.2); Carbon Dioxide 30 mmol/L (22-30); Chloride 111 mmol/L (98-107); Glucose 122 mg/dL (74-99); Potassium 4.2 mmol/L (3.5-5.1); Sodium 144 mmol/L (137-145); Total Bilirubin 2.6 mg/dL (0.2-1.3); Total Protein 5.4 g/dL (6.3-8.2)
[2019-04-02] MEDS: HEPARIN SODIUM,PORCINE 5,000 UNIT/ML 1 ML VIAL SQ SCH ×2 (08:15→20:17)
[2019-04-02] MEDS: methylPREDNISolone SOD SUCCI 40 MG/ML 1 ML VIAL IV SCH ×2 (08:15→20:17)
[2019-04-02] MEDS: BUDESONIDE 0.5 MG/2 ML NEBU INHALATION SCH ×2 (09:10→19:44)
[2019-04-02] MEDS: IPRATROPIUM-ALBUTEROL 3 ML NEB INHALATION SCH ×4 (09:10→19:44)
--- NOTE | 2019-04-02 14:16 | P.PN ---
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 I think she has more features of bulbar palsy as the patient has difficulties with speech and swallowing and she has become significantly weak and currently she has severe neuromuscular weakness. She was given Radicava treatment for [facility] pH was also placed on BiPAP at home which she had difficulties in tolerating. The patient has been progressively getting weak. She came in with weakness and fatigue and collapse. She was found to have acute hyperchloremic hypernatremia. Most of the information obtained from the who is at the bedside. The patient herself cannot speak at this point in time. Currently she is on a AVAPS mode noninvasive positive pressure ventilation and the patient is tolerating it without any major difficulties and a tidal volume target of 3 on 75 mL. The patient has been losing weight. She has lost sign ificant amount of weight more than 100 pounds according to the . She is having difficulty with feeding. During her last visitation at [facility] she was been told that she is not a candidate for PEG tube insertion. In fact she was asked to go to hospice care. I was asked to evaluate this patient for this regard. Chest x-ray is not showing any abnormalities and the blood gases showing hypercapnic respiratory failure secondary to neuromuscular weakness and the patient's pH was a 7.36 with a pCO2 of 64 and pO2 of 118 on an FiO2 of 100%. Sodium level is at 163 with a chloride level of 126. Troponins were minimally elevated at 0.12. On 03/31/2019 patient seen in follow-up on selective care unit. She is resting in bed, currently on BiPAP in the event mode with target volume of 375 ML, with minimal pressure support of 10, with a maximum pressure support of 20, EPAP of 6, and FiO2 of 30%, with I time of 1.00. He is tolerating it rather well. Her lung sounds are diminished, but better air entry noted bilaterally, compared to yesterday. Her spouse of one home to bring her BiPAP unit to the hospital, and have the AVAPS mode set up. For now patient is tolerating it well. She is rather weak, and it's hard for her to verbalize, especially with the BiPAP mask on, but she is maintaining good oxygenation, she is afebrile, hemodynamically stable, days labs have been noted, white blood cell, is 9.1, hemoglobin is 14.1, platelet count is 87, serum sodium is trending down, down to 155, and now were told that the D5W infusion has been discontinued, we will restart it, serum potassium is 3.3, chloride is 117, CO2 33, B1 is 22 creatinine 0.49. On 04/01/2019 patient seen in follow-up on selective care unit. Currently she is off the AVAPS/Bipap, on nasal cannula, at 4 L, the RT said that she had been off for about an hour, and she started to look CT, and there is diminished air entry noted bilaterally, place the patient back on AVAPS/NPPES. Patient's husba nd is at the bedside, and he is currently trying to obtain a Trilogy ventilator for home use. The previous BiPAP unit was from [facility], however apparently they do not supply Trilogy ventilators, and I will speak to discharge planning about this issue. Patient is extremely weak, she is not able to speak, she communicates with gestures, mainly with the affirmative or negative reaction mainly, with her gestures of her hand. She had been nothing by mouth for several days, she remains on D5 W at a rate of 100, and on today's labs her serum sodium is improving, down to 150, from 155, potassium 3.4, chloride is 1:15, CO2 is 33, B1 is 18, creatinine 0.49. Liver enzymes are on the rise, with a total bilirubin of 2.2, AST is 187, ALT is 197, alkaline phosphatase x-ray came down, down to 109. Patient denies any abdominal pain, ultrasound of the gallbladder showed some echogenic bile and gallstones, no dilated ducts. Patient remains on IV antibiotics. Blood culture showed no growth, urine culture was positive for E. coli with P and sensitivity. No fever or chills, no leukocytosis. Patient and the family did meet with hospice over the weekend, and apparently the plan is to transition to hospice care after discharge. On 04/02/2019 patient seen in follow-up on selective care unit, lethargic, remains on AVAPS/Bipap, remained down and most of the day and night, patient x- ray started to develop a breakdown on the bridge of her nose. Yesterday she was able to come off to a regular nasal cannula, for short period time has become easily fatigued, becomes tachypneic and has to be placed back on AVAPS. Patient has not been eating well, and family does not wish any artificial means of feeding including PEG tube or intravenous nutrition. Quite lethargic and weak, lung sounds are diminished bilaterally, she is afebrile. His labs were noted, showing white blood cell count of 5.5, hemoglobin of 13.5, platelet count of 76, serum sodium of 144, potassium is 4.2, chloride is 111, BUN of 15, creatinine is 0.44, over enzymes continued to trend, with total bilirubin of 2.6, AST of 228, ALT is 265. Patient's family wishes to take the patient home with home care at this time. Awaiting the arrangement of Trilogy ventilator Objective - Vital Signs Vital signs: Vital Signs Temp 96.9 F L 04/02/19 11:49 Pulse 88 04/02/19 12:31 Resp 24 04/02/19 11:49 BP 101/76 04/02/19 11:49 Pulse Ox 100 04/02/19 11:49 Intake & Output 04/01/19 04/02/19 04/02/19 18:59 06:59 18:59 Intake Total 0 500 Output Total 600 700 200 Balance -600 -200 -200 Weight 72 kg Intake: Intake, IV Titration 500 Amount Levofloxacin 500Mg-D5w 100 Pmx 500 mg In Dextrose/ Water 1 100ml.bag @ 100 mls/hr IVPB Q24H DEDE Rx#: [id number] Potassium Chloride 10 meq 400 In Water For Injection 1 100ml.bag @ 100 mls/hr IVPB Q1HR DEDE Rx#: [id number] Oral 0 Output: Urine 600 700 200 Other: Voiding Method Bedside Commode Bedside Commode Bedside Commode # Voids 0 1 # Bowel Movements 1 - Exam GENERAL EXAM: Alert, quite weak 48-year-old white female, currently on AVAPs/Bipap, patient is looking quite fatigued HEAD: Normocephalic/atraumatic. EYES: Normal reaction of pupils, equal size. Conjunctiva pink, sclera white. NOSE: Clear with pink turbinates. THROAT: No erythema or exudates. NECK: No masses, no JVD, no thyroid enlargement, no adenopathy. CHEST: No chest wall deformity. Symmetrical expansion. LUNGS: Equal air entry with no crackles, wheeze, rhonchi or dullness. Diminished breath sounds bilaterally CVS: Regular rate and rhythm, normal S1 and S2, no gallops, no murmurs, no rubs ABDOMEN: Soft, nontender. No hepatosplenomegaly, normal bowel sounds, no guarding or rigidity. EXTREMITIES: No clubbing, no edema, no cyanosis, 2+ pulses and upper and lower extremities. MUSCULOSKELETAL: Muscle strength and tone normal. SPINE: No scoliosis or deformity SKIN: No rashes CENTRAL NERVOUS SYSTEM: Alert and oriented -2. No focal deficits, diffuse severe muscle weakness, and the patient cannot speak, but she is able to communicate with hand gestures - Labs CBC & Chem 7: 04/02/19 06:30 04/02/19 06:30 Labs: Abnormal Lab Results - Last 24 Hours (Table) 04/02/19 04/02/19 Range/Units 06:30 06:30 RDW 15.7 H (11.5-15.5) % Plt Count 76 L (150-450) k/uL Lymphocytes # 0.8 L (1.0-4.8) k/uL Chloride 111 H (98-107) mmol/L Creatinine 0.44 L (0.52-1.04) mg/dL Glucose 122 H (74-99) mg/dL Total Bilirubin 2.6 H (0.2-1.3) mg/dL AST 228 H (14-36) U/L ALT 265 H (9-52) U/L Total Protein 5.4 L (6.3-8.2) g/dL Albumin 2.9 L (3.5-5.0) g/dL Microbiology - Last 24 Hours (Table) 03/29/19 19:43 Blood Culture - Preliminary Blood No Growth after 72 hours Assessment and Plan Plan: 1 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 During her most recent evaluation at [facility], she was advised to go to hospice care 2 chronic hypercapnic respiratory failure secondary to neuromuscular weakness and a sensation with pseudobulbar palsy/ALS 3 inability to swallow secondary to above 4 nonlaboratory and the patient is bedridden secondary to above 5 hyperchloremic hypernatremia due to intravascular volume depletion/dehydration mainly due to lack of oral intake 6 nonspecific troponin leak 7 hypokalemia secondary to above 8 hypertension 9 Stage II pressure ulcer on the bridge of the nose from BiPAP mask Plan: Patient is lethargic and weak, but no worsening dyspnea, tolerating AVAPS/Bipap. CM is working with [employer] for a Trilogy ventilator. Patient will need AVAPS at home with target volume of 375 ML, minimal pressure support of 10, with a maximum pressure-support of 20, EPAP of 6, and FiO2 of 30% with I time of 1.00. However the patient is stable to go home on her BiPAP unit, with her home settings of 13/7. The patient's family wished to take the patient home with home care at this time, are not considering hospice at this time. I performed a history & physical examination of the patient and discussed their management with my nurse practitioner, Rajani Keyes. I reviewed the nurse practitioner's note and agree with the documented findings and plan of care. Lung sounds are positive for diminished breath sounds. The findings and the impression was discussed with the patient. I attest to the documentation by the nurse practitioner. Time with Patient: Less than 30
--- NOTE | 2019-04-03 00:47 | P.PN ---
Progress Note - Text Progress Note Date: 04/02/19 Presenting complaint: Tired Interval history: This is a patient with known history of progressive bulbar palsy has been evaluated at [facility] and [facility]. Patient was last told that she'll be probably an appropriate candidate for hospice. Patient in the week ago was able to walk slowly. Was starting some liquid diet. When patient and her were coming back from camping patient not able to come out of the car. And patient admitted for the same. Patient now is barely able to eat. Has a BiPAP in place. Able to communicate some. Today-has a BiPAP in place. Remains lethargic. Barely following commands. No oral intake. Patient's son at the bedside. Review of systems: Unable to obtain as patient is barely communicating Current medications reviewed that included: DuoNeb, IV fluids On examination: VITAL SIGNS: 96.9, 88, 24, 101/76, 100% on BiPAP GENERAL APPEARANCE: Laying in bed, tired appearing, on a BiPAP. EYES: Pupils equal. Conjunctiva normal. NECK: JVD unable to assess. Mass not palpable. RESPIRATORY: Respiratory effort increased. Lungs decreased breath sounds. CARDIOVASCULAR: First and second sounds normal. No edema. ABDOMEN: Soft. Liver and spleen not palpable. No tenderness. No mass palpable. PSYCHIATRY: Lethargic but arousable able to follow some simple commands NEUROLOGICAL:. Able to move her limbs. Follows simple commands Investigations, reviewed in the clinical context: Sodium 144 potassium 4.2 creatinine 0.44 white count 5.5 Assessment: -Acute progression of pseudobulbar palsy with poor prognosis. -Acute on chronic hypercapnic respiratory failure due to pseudobulbar palsy -Medical debility -Hypernatremia due to free water deficit, due to poor oral intake -Chronic dysphagia due to pseudobulbar palsy -Hypokalemia -Hypertension - bilirubinemia Plan: Plan was to discharge the patient home today. Awaiting BiPAP. When I saw the patient was not present. fleet manager informed me that currently is reluctant to take the patient home. At this point I will see how the patient does for next 24 hours. We'll readdress the entire situation with the again tomorrow. Prognosis remains guarded.
[2019-04-03 04:47] VITALS: TEMP 97.9
[2019-04-03 06:58] LABS: Basophils % (A) 0 %; Eosinophils # (A) 0.1 k/uL (0-0.7); Eosinophils % (A) 1 %; HCT 46.7 % (34.0-46.0); HGB 15.1 gm/dL (11.4-16.0); Lymphocytes % (A) 13 %; MCH 28.4 pg (25.0-35.0); MCHC 32.3 g/dL (31.0-37.0); MCV 87.9 fL (80.0-100.0); Mean Platelet Volume 9.6; Monocytes # (A) 0.4 k/uL (0-1.0); Monocytes % (A) 6 %; Neutrophils # (A) 5.7 k/uL (1.3-7.7); Neutrophils % (A) 78 %; Platelet Count 101 k/uL (150-450); RBC 5.32 m/uL (3.80-5.40); RDW 14.8 % (11.5-15.5); WBC 7.3 k/uL (3.8-10.6)
[2019-04-03 07:11] LABS: ALT 361 U/L (9-52); AST 216 U/L (14-36); African American GFR (CKD) >90 (>60 ml/min/1.73 sqM); Albumin 3.3 g/dL (3.5-5.0); Alkaline Phosphatase 133 U/L (38-126); Anion Gap 6 mmol/L; Blood Urea Nitrogen 11 mg/dL (7-17); Calcium 8.8 mg/dL (8.4-10.2); Carbon Dioxide 30 mmol/L (22-30); Chloride 107 mmol/L (98-107); Glucose 141 mg/dL (74-99); Potassium 3.7 mmol/L (3.5-5.1); Sodium 143 mmol/L (137-145); Total Bilirubin 2.1 mg/dL (0.2-1.3)
[2019-04-03] MEDS: DEXTROSE 5% IN WATER 1,000 ML IV SCH ×2 (08:29→09:07)
[2019-04-03] MEDS: LORazepam 2 MG/ML INJ IV PRN ×2 (08:53→12:56)
[2019-04-03] MEDS: methylPREDNISolone SOD SUCCI 40 MG/ML 1 ML VIAL IV SCH (09:03)
[2019-04-03] MEDS: HEPARIN SODIUM,PORCINE 5,000 UNIT/ML 1 ML VIAL SQ SCH (09:03)
[2019-04-03] MEDS: IPRATROPIUM-ALBUTEROL 3 ML NEB INHALATION SCH ×2 (09:05→12:26)
[2019-04-03] MEDS: BUDESONIDE 0.5 MG/2 ML NEBU INHALATION SCH (09:05)
[2019-04-03 13:11] VITALS: BP 136/91; PULSE 97; RESP 32
--- NOTE | 2019-04-03 23:33 | P.DS ---
Providers Date of admission: 03/29/19 16:21 Expected date of discharge: 04/03/19 Attending physician: Lawrence Palacios Consults: 03/29/19 16:18 Consult Physician Urgent Consulting Provider: Naye Hairston Consult Reason/Comments: elevated troponin Do you want consulting provider notified?: Yes 03/29/19 22:32 Consult Physician Urgent Consulting Provider: Zach Hartley Consult Reason/Comments: Respiratory distress on bipap. Do you want consulting provider notified?: Yes, Notify in am [facility] Course: Hospital course: This is a patient with known history of progressive bulbar palsy has been evaluated at [facility] and [facility]. Patient was last told that she'll be probably an appropriate candidate for hospice. Patient in the week ago was able to walk slowly. Was starting some liquid diet. When patient and her were coming back from camping patient not able to come out of the car. And patient admitted for the same. Patient now is barely able to eat. Has a BiPAP in place. Able to communicate some. Patient continued to deteriorate. Never really got off the BiPAP. No oral intake. Barely communicating. Finally has been decided to proceed with comfort measures. Because symptom control she'll qualify for inpatient hospice. Psych done spoke at length with the patient's . All his questions were answered. Comfort measures be initiated. Discussion discharge planning more than 35 minutes. Communicated to the hospice nurse. On examination: Lethargic tired Respiration increased, patient uncomfortable Lungs decreased breath sounds Final diagnosis: -Acute progression of pseudobulbar palsy with poor prognosis. -Acute on chronic hypercapnic respiratory failure due to pseudobulbar palsy, worsening -Medical debility -Hypernatremia due to free water deficit, due to poor oral intake -Chronic dysphagia due to pseudobulbar palsy -Hypokalemia -Hypertension - bilirubinemia Disposition: Inpatient hospice/GIP. Patient Condition at Discharge: Poor Plan - Discharge Summary Discharge Rx Participant: No New Discharge Prescriptions: Continue Ipratropium Nebulized [Atrovent Nebulized 0.2 MG/ML] 0.5 mg INHALATION RT-Q6H PRN PRN Reason: Shortness Of Breath Albuterol Nebulized [Ventolin Nebulized] 2.5 mg INHALATION RT-Q6H PRN PRN Reason: Shortness Of Breath Discontinued Montelukast [Singulair] 10 mg PO HS Losartan [Cozaar] 50 mg PO DAILY Furosemide [Lasix] 20 mg PO DAILY Radicava 30mg 30 mg IV DAILY Discharge Medication List Albuterol Nebulized [Ventolin Nebulized] 2.5 mg INHALATION RT-Q6H PRN 11/01/18 [History] Ipratropium Nebulized [Atrovent Nebulized 0.2 MG/ML] 0.5 mg INHALATION RT-Q6H PRN 11/01/18 [History] Follow up Appointment(s)/Referral(s): Tyrone Caruso MD [Primary Care Provider] - As Needed [facility], [NON-STAFF] - Patient Instructions/Handouts: Hospice (DC) Activity/Diet/Wound Care/Special Instructions: Continue to use home bipap at current settings - Trilogy vent to be delivered to home once approved by insurance - [facility] Bed/Bedside [facility]- [phone] Discharge Disposition: DISCH TO HOSPICE MED [facility]
== END 2019-04-03 13:15 | disposition hospice, inpatient (51) | DRG 56 ==
LOC: EC 13:27 → 3SCARD 16:21
PROVIDERS: ADMIT Hospitalist; ATTEND Hospitalist
PROC: 5A09357 Assistance with Respiratory Ventilation, Less than 24 Consecutive Hours, Continuous Positive Airway Pressure (ICD-10-PCS; principal; 2019-03-29)
DX: G12.21 Amyotrophic lateral sclerosis (principal); G93.41 Metabolic encephalopathy; I21.A1 Myocardial infarction type 2; J96.21 Acute and chronic respiratory failure with hypoxia; J96.22 Acute and chronic respiratory failure with hypercapnia; E87.0 Hyperosmolality and hypernatremia; N39.0 Urinary tract infection, site not specified; R17 Unspecified jaundice; G12.22 Progressive bulbar palsy; D69.6 Thrombocytopenia, unspecified; E86.0 Dehydration; E87.6 Hypokalemia; E87.8 Other disorders of electrolyte and fluid balance, not elsewhere classified; F03.90 Unspecified dementia, unspecified severity, without behavioral disturbance, psychotic disturbance, mood disturbance, and anxiety; I10 Essential (primary) hypertension; R13.10 Dysphagia, unspecified; Z51.5 Encounter for palliative care; Z66 Do not resuscitate; Z79.899 Other long term (current) drug therapy; Z87.891 Personal history of nicotine dependence; Z90.710 Acquired absence of both cervix and uterus; Z87.440 Personal history of urinary (tract) infections; R63.4 Abnormal weight loss; Z68.25 Body mass index [BMI] 25.0-25.9, adult; Z88.0 Allergy status to penicillin; Z91.010 Allergy to peanuts; Z74.01 Bed confinement status; I95.9 Hypotension, unspecified
CPT/HCPCS: 36415; 36600; 70450; 71045; 76705; 80048; 80053; 80074; 81001; 82805; 83735; 83880; 84132; 84484; 85025; 85610; 85730; 87040; 87077; 87086; 87186; 93005; 93306; 94640; 94660; 94760; 96365; 96366; 96368; 96376; 99291

== ENCOUNTER 2019-04-03 11:25 | Inpatient (IN) | payer MEDICAID ==
[2019-04-03] MEDS ORDERED: ACETAMINOPHEN SUPPOSITORY 650 MG SUPP RECTAL PRN (12:58)
[2019-04-03] MEDS ORDERED: ONDANSETRON 4 MG/2 ML VIAL IVP PRN (12:58)
[2019-04-03] MEDS ORDERED: MORPHINE SULFATE 2 MG/ML SYRINGE IV PRN (12:58)
[2019-04-03] MEDS ORDERED: ATROPINE OPHTH SOLN 1% 5ML BTL SUBLINGUAL PRN (12:58)
[2019-04-03] MEDS ORDERED: MORPHINE SULFATE (100 MG/2 ML) 100 MG in SODIUM CHLORIDE 0.9% 100 ML IV SCH (13:00)
[2019-04-03] MEDS ORDERED: SCOPOLAMINE 1.5MG/72HR PATCH TRANSDERM SCH (13:00)
[2019-04-03] MEDS: LORazepam 2 MG/ML INJ IV PRN ×2 (16:12→20:40)
[2019-04-04] MEDS: LORazepam 2 MG/ML INJ IV PRN ×4 (01:31→12:50)
[2019-04-04] MEDS: MORPHINE SULFATE 100 MG in SODIUM CHLORIDE 0.9% 90 ML IV SCH ×2 (11:48→14:38)
[2019-04-04 15:31] VITALS: PULSE 108
--- NOTE | 2019-04-04 20:28 | P.PN ---
Progress Note - Text Progress Note Date: 04/04/19 Presenting complaint: Short of breath Interval history: Patient is under GIP service. For comfort measures. Shortness of breath. BiPAP in place. Several family members present. Barely communicating On examination: Laying in bed, short of breath Lungs decreased breath sounds increased respiratory rate Neuro barely able to communicate, moving her limbs Assessment Advanced end-stage pseudobulbar palsy Respiratory distress from above with acute hypoxic respiratory failure Plan: Discussed with daughter . Possibly we'll DC the BiPAP mask which is making the pain uncomfortable. * morphine drip if needed. Other comfort care pack to continue.
[2019-04-04 23:51] VITALS: RESP 6
--- NOTE | 2019-04-07 00:23 | P.DS ---
Providers Date of admission: 04/03/19 13:20 Expected date of discharge: 04/05/19 (Patient ) Attending physician: Lawrence Palacios Primary care physician: [facility] Course: Hospital course: Patient admitted to GIP service for symptom control. Use BiPAP morphine etc. Patient peacefully. Many family members are present Cause of : Pseudobulbar palsy Patient Condition at Discharge: Critical Plan - Discharge Summary New Discharge Prescriptions: No Action Ipratropium Nebulized [Atrovent Nebulized 0.2 MG/ML] 0.5 mg INHALATION RT-Q6H PRN PRN Reason: Shortness Of Breath Albuterol Nebulized [Ventolin Nebulized] 2.5 mg INHALATION RT-Q6H PRN PRN Reason: Shortness Of Breath Discharge Medication List Albuterol Nebulized [Ventolin Nebulized] 2.5 mg INHALATION RT-Q6H PRN 11/01/18 [History] Ipratropium Nebulized [Atrovent Nebulized 0.2 MG/ML] 0.5 mg INHALATION RT-Q6H PRN 11/01/18 [History] Discharge Disposition: - Preliminary Cause of Preliminary Cause of : Pseudobulbar palsy
== END 2019-04-05 02:41 | disposition expired | DRG 56 ==
LOC: 3SCARD 13:20
PROVIDERS: ADMIT Hospitalist; ATTEND Hospitalist
PROC: 5A09457 Assistance with Respiratory Ventilation, 24-96 Consecutive Hours, Continuous Positive Airway Pressure (ICD-10-PCS; principal; 2019-04-03)
DX: G12.29 Other motor neuron disease (principal); J96.01 Acute respiratory failure with hypoxia; F48.2 Pseudobulbar affect; Z51.5 Encounter for palliative care
CPT/HCPCS: 94660